=== PATIENT | female | born 1965 | race Caucasian/White ===

== ENCOUNTER 2017-10-08 21:59 | Inpatient (IN) | payer OTHER ==
[2017-10-08] MEDS ORDERED: SODIUM CHLORIDE 0.9% 1,000 ML IV ONE (22:48)
[2017-10-08] MEDS ORDERED: INSULIN REGULAR 100 UNIT/ML VIAL SQ ONE (22:48)
[2017-10-08 22:59] LABS: Glucose,Whole Blood 168 mg/dL (75-99)
[2017-10-08] MEDS ORDERED: MORPHINE SULFATE 4 MG/ML SYRINGE IVP STA (23:22)
--- NOTE | 2017-10-08 23:34 | ED ---
Abdominal Pain HPI - General Chief Complaint: Abdominal Pain Stated Complaint: abd pain Time Seen by Provider: 10/08/17 22:26 Source: patient, EMS Mode of arrival: EMS Limitations: no limitations - History of Present Illness Initial Comments: 52 years old female transferred from [facility] she presented there with a nontraumatic intermittent abdominal pain since 2016 she reports her pain is there daily since some days worse than the other pain has been increasing in intensity and frequency over the past week and earache interfering with her daily activities she reports taking stool softener and straining to have a daily bowel movement stools are soft and brown reports that she has a hard time passing flatus she reports her appetite is low or he has decreased for the last 3 days she is also stating that she has lost 10 pounds then she regained the she is reporting worsening of the nausea requiring Zofran frequently and been more tired for the last several weeks and she has a daily diaphoresis for about a month now complaining about chest heaviness feels like she is not getting enough air she has a history of pulmonary embolism she has been off the anticoagulants since January 2017 and she also has a history of pancreatitis diverticulitis colitis ileus she has previously gone cholecystectomy appendectomy and retrieval of stone from her pancreas she is a diabetic and reports poor recent control of her blood sugar due to changes change her insulin she had quite extensive workup done [facility] CBC was normal test was negative) urinalysis shows glucose no ketones lactic acid was 1.8, compressive metabolic panel showed hyperglycemia which on arrival here had resolved her sugar in all department at [facility] was around 160 lipase was normal troponin was negative BNP was normal she had outpatient ultrasound today abdominal ultrasound was unable to visualize pancreas secondary to overlying bowel gas pelvic ultrasound showed a 2.3 cm centimeter fibroids in the lower posterior uterine segment also had a CT of the abdomen the chest and pelvis there was no PE she is status post cholecystectomy bilateral ductal dilatation and Vanesa's duodenal wall near comment bile duct insertion - Related Data Home Medications Medication Instructions Recorded Confirmed Docusate [Colace] 100 mg PO DAILY 10/08/17 10/08/17 Gabapentin 800 mg PO TID 10/08/17 10/08/17 Insulin Glargine,Hum.rec.anlog 20 unit SQ HS 10/08/17 10/08/17 [Lantus Solostar] Insulin Regular [HumuLIN R] See Protocol SQ TID PRN 10/08/17 10/08/17 Morphine Sulfate 15 mg PO Q4H PRN 10/08/17 10/08/17 Ondansetron HCl [Zofran] 4 mg PO Q4H PRN 10/08/17 10/08/17 PARoxetine HCL [Paxil] 40 mg PO DAILY 10/08/17 10/08/17 Women's Laxative 1 tab PO DAILY 10/08/17 10/08/17 Allergies Allergy/AdvReac Type Severity Reaction Status Date / Time latex Allergy Unknown Verified 10/08/17 22:22 Review of Systems ROS Statement: Those systems with pertinent positive or pertinent negative responses have been documented in the HPI. ROS Other: All systems not noted in ROS Statement are negative. Past Medical History Past Medical History: Diabetes Mellitus, Pulmonary Embolus (PE) Additional Past Medical History / Comment(s): colitis, pollus, ibs, dm 2, pancreatitis, neuropathy, pulmonary embolus 2017 History of Any Multi-Drug Resistant Organisms: None Reported Past Surgical History: Appendectomy, Cholecystectomy, Orthopedic Surgery Additional Past Surgical History / Comment(s): tumor right shoulder non- malignant, L ankle surgery, nose surgery Past Psychological History: No Psychological Hx Reported Smoking Status: Current every day smoker Past Alcohol Use History: None Reported Past Drug Use History: None Reported General Exam - General Exam Comments Initial Comments: General: The patient is awake and alert, in no distress, and does not appear acutely ill. She does look sleepy but GCS is 15 and answers questions appropriately Skin: Skin is warm and dry and no rashes or lesions are noted. Eye: Pupils are equal, round and reactive to light, extra-ocular movements are intact; there is normal conjunctiva bilaterally. Ears, nose, mouth and throat: There are moist mucous membranes and no oral lesions. Neck: The neck is supple, there is no tenderness Cardiovascular: There is a regular rate and rhythm. No murmur, rub or gallop is appreciated. Respiratory: To auscultation bilateral, no wheezing no rhonchi no distress respiratory [place] noticed Gastrointestinal: She is mildly diffusely tender over the right upper quadrant area and the left upper quadrant area and the epigastric area positive bowel sounds no guarding no rebounds or Back: There is no tenderness to palpation in the midline. There is no obvious deformity. Musculoskeletal: Normal ROM, no tenderness, There is no pedal edema. There is no calf tenderness or swelling. No cords were appreciated. Neurological: CN II-XII intact, Cranial nerves III through XII are intact. There are no obvious motor or sensory deficits. Coordination appears grossly intact. Speech is normal. Psychiatric: Cooperative, appropriate mood & affect, normal judgment. Limitations: no limitations Course Vital Signs 10/08/17 22:01 Temperature 98.4 F Pulse Rate 76 Respiratory 18 Rate Blood Pressure 128/86 O2 Sat by Pulse 97 Oximetry Medical Decision Making - Lab Data Lab Results 10/08/17 Range/Units 22:54 POC Glucose (mg/dL) 168 H (75-99) mg/dL POC Glu Manager Long [facility] ID Tiki Alcantara Disposition Clinical Impression: Diffuse abdominal pain, Chronic abdominal pain, Duodenitis Disposition: ADMITTED IP TO THIS HOSP Condition: Good Referrals: Yung Otto MD [Primary Care Provider] - 1-2 days
[2017-10-08] MEDS ORDERED: NALOXONE 0.4 MG/ML 1 ML VIAL IV PRN (23:35)
[2017-10-08] MEDS ORDERED: GABAPENTIN 400 MG CAP PO STA (23:36)
[2017-10-08] MEDS: SODIUM CHLORIDE 0.9% 1,000 ML IV SCH (23:37)
[2017-10-08] MEDS ORDERED: INSULIN REGULAR 100 UNIT/ML VIAL SQ PRN (23:43)
[2017-10-08] MEDS ORDERED: ONDANSETRON 4 MG TAB PO PRN (23:43)
[2017-10-09] MEDS: ONDANSETRON 4 MG/2 ML VIAL IVP PRN ×3 (06:32→22:59)
[2017-10-09 07:06] LABS: Basophils % (A) 1 %; Eosinophils # (A) 0.2 k/uL (0-0.7); Eosinophils % (A) 3 %; HCT 38.1 % (34.0-46.0); HGB 11.6 gm/dL (11.4-16.0); Hypochromasia Marked; Lymphocytes # (A) 2.6 k/uL (1.0-4.8); Lymphocytes % (A) 42 %; MCH 26.3 pg (25.0-35.0); MCHC 30.3 g/dL (31.0-37.0); MCV 86.5 fL (80.0-100.0); Mean Platelet Volume 7.1; Monocytes # (A) 0.3 k/uL (0-1.0); Monocytes % (A) 6 %; Neutrophils # (A) 2.8 k/uL (1.3-7.7); Neutrophils % (A) 46 %; Platelet Count 194 k/uL (150-450); RBC 4.41 m/uL (3.80-5.40); RDW 12.3 % (11.5-15.5); WBC 6.1 k/uL (3.8-10.6)
[2017-10-09 07:11] LABS: ALT 27 U/L (9-52); AST 22 U/L (14-36); Alkaline Phosphatase 85 U/L (38-126); Anion Gap 8 mmol/L; Blood Urea Nitrogen 6 mg/dL (7-17); Calcium 8.8 mg/dL (8.4-10.2); Carbon Dioxide 23 mmol/L (22-30); Chloride 110 mmol/L (98-107); Glucose 150 mg/dL (74-99); Potassium 4.4 mmol/L (3.5-5.1); Sodium 141 mmol/L (137-145); Total Bilirubin 0.3 mg/dL (0.2-1.3); Total Protein 5.8 g/dL (6.3-8.2)
[2017-10-09 07:33] LABS: Glucose,Whole Blood 158 mg/dL (75-99)
[2017-10-09] MEDS: GABAPENTIN 400 MG CAP PO SCH ×3 (08:07→21:43)
[2017-10-09] MEDS: PARoxetine 20 MG TAB PO SCH (08:07)
[2017-10-09] MEDS: PANTOPRAZOLE 40 MG/10 ML VIAL IV SCH (08:07)
[2017-10-09] MEDS: DOCUSATE 100 MG CAP PO SCH (08:07)
[2017-10-09] MEDS: MORPHINE SULFATE 4 MG/ML SYRINGE IV PRN ×4 (08:41→21:41)
[2017-10-09] MEDS: SODIUM CHLORIDE 0.9% 1,000 ML IV SCH ×2 (09:38→19:32)
[2017-10-09] MEDS: NICOTINE 14MG/24HR PATCH TRANSDERM SCH (11:31)
[2017-10-09 12:00] LABS: Glucose,Whole Blood 252 mg/dL (75-99)
--- NOTE | 2017-10-09 12:32 | P.CONS ---
History of Present Illness - Reason for Consult Consult date: 10/09/17 abdominal pain possible duodenitis Requesting physician: Jt Cruz - Chief Complaint abdominal pain - History of Present Illness 52-year-old female with a history of remote EtOH chronic pancreatitis, acalculous cholecystectomy, diverticulosis, unprovoked pulmonary embolism presently not on anticoagulation, chronic abdominal pain, colitis, neuropathy, and appendectomy. Patient has been experiencing diffuse abdominal pain since [facility] but sought medical care for the first time this past week and [facility]. However [facility] records indicate CT of the abdomen and pelvis that showed no evidence of bowel obstruction. Multiple pancreatic calcifications consistent with chronic pancreatitis in the medial margin of the adjacent duodenum there is a 2.61.7 cm possible cystic lesion. There is mild ectasia of the biliary tree with pneumobilia that could be seen in postcholecystectomy patients. Patient reports about a year ago she went to [place] she grew up in the [facility] and saw gastrologist for a "pancreatic stone removed". She recently saw a GI doctor in [place], [place] regarding her presenting GI complaints. Last colonoscopy to her memory at least 5 years ago. No EGD. Denies diarrhea constipation hematemesis hematochezia melena weight loss fever or chills. [facility] chemistries reviewed no evidence of abnormal liver or pancreatic enzymes. White count 6.1. Hemoglobin 11.6. BUN 6 creatinine 0.5. Review of Systems Constitutional: Denies fever, chills, sweats, weight gain, or loss. HEENT: Negative for migraines, blurred vision or loss, earaches, drainage, tinnitus, oral mucosal lesions, dysphagia, or odynophagia. CARDIAC: Negative for chest pain, arrhythmias, or palpitation. RESPIRATORY: Pulmonary embolus and. Negative for shortness of breath, hemoptysis, cough, or sputum production. GI: See HPI for pertinent findings. : Negative for hematuria, urgency, frequency, polyuria, or dysuria. GYNc: Denies possibility of . Negative vaginal discharge. MUSCULOSKELETAL: Negative for muscle aches, swelling, arthritis, and arthralgias. NEUROLOGIC: Negative for stroke or TIA. ENDOCRINE: Negative for thyroid problems. SKIN: Negative for rash or itching. PSYCHIATRIC: Negative history for depression and anxiety Past Medical History Past Medical History: Diabetes Mellitus, Pulmonary Embolus (PE) Additional Past Medical History / Comment(s): colitis, polps, ibs, dm 2, pancreatitis, neuropathy, pulmonary embolus 2017 History of Any Multi-Drug Resistant Organisms: None Reported Past Surgical History: Appendectomy, Cholecystectomy, Orthopedic Surgery Additional Past Surgical History / Comment(s): tumor right shoulder non- malignant, L ankle surgery, nose surgery Past Anesthesia/Blood Transfusion Reactions: No Reported Reaction Past Psychological History: No Psychological Hx Reported Smoking Status: Former smoker Past Alcohol Use History: None Reported Additional Past Alcohol Use History / Comment(s): Patient smokes about 1.5 packs a day Past Drug Use History: Marijuana Additional Drug Use History / Comment(s): Patient smokes marijuana for nausea and pain. - Past Family History Mother Family Medical History: Cancer, Congestive Heart Failure (CHF) Additional Family Medical History / Comment(s): Heart disease Father Family Medical History: No Reported History Medications and Allergies Home Medications Medication Instructions Recorded Confirmed Type Docusate [Colace] 100 mg PO DAILY 10/08/17 10/08/17 History Gabapentin 800 mg PO TID 10/08/17 10/08/17 History Insulin Glargine,Hum.rec.anlog 20 unit SQ HS 10/08/17 10/08/17 History [Lantus Solostar] Insulin Regular [HumuLIN R] See Protocol SQ TID PRN 10/08/17 10/08/17 History Morphine Sulfate 15 mg PO Q4H PRN 10/08/17 10/08/17 History Ondansetron HCl [Zofran] 4 mg PO Q4H PRN 10/08/17 10/08/17 History PARoxetine HCL [Paxil] 40 mg PO DAILY 10/08/17 10/08/17 History Women's Laxative 1 tab PO DAILY 10/08/17 10/08/17 History Allergies Allergy/AdvReac Type Severity Reaction Status Date / Time latex Allergy Unknown Verified 10/09/17 07:13 Physical Exam Vitals: Vital Signs Temp Pulse Pulse Pulse Resp BP BP 10/09/17 08:04 98.3 F 72 16 10/09/17 08:00 16 10/09/17 00:40 98.5 F 76 16 108/71 10/09/17 00:19 98.7 F 89 18 114/66 10/08/17 22:01 98.4 F 76 18 128/86 BP Pulse Ox 10/09/17 08:04 117/80 97 10/09/17 08:00 10/09/17 00:40 93 L 10/09/17 00:19 100 10/08/17 22:01 97 Intake and Output 10/08/17 10/09/17 10/09/17 22:59 06:59 14:59 Intake Total 500 100 Balance 500 100 Intake: Oral 500 100 Other: Voiding Method Toilet Weight 73.936 kg General appearance: The patient is alert, oriented, in no acute distress. HET: Head is normocephalic and atraumatic. Pupils are equal and reactive. Oropharynx is clear without lesions. Neck: Supple without lymphadenopathy. Trachea midline. Heart: S1 S2. Regular rate and rhythm. Lungs: No crackles or wheezes are heard. Abdomen: Soft, mild tenderness across the mid to lower abdomen, nondistended with bowel sounds. No peritoneal signs. No palpable organomegaly or masses. Extremities: Normal skin color and turgor. No cyanosis, rash, ulceration, clubbing, or edema. Radial and pedal pulses are 2/4 bilaterally. Neurological: No focal deficits. Strength and sensation are grossly intact. Results CBC & Chem 7: 10/09/17 06:37 10/09/17 06:37 Labs: Abnormal Lab Results - Last 24 Hours (Table) 10/08/17 10/09/17 10/09/17 Range/Units 22:54 06:37 06:37 MCHC 30.3 L (31.0-37.0) g/dL Chloride 110 H (98-107) mmol/L BUN 6 L (7-17) mg/dL Glucose 150 H (74-99) mg/dL POC Glucose (mg/dL) 168 H (75-99) mg/dL Total Protein 5.8 L (6.3-8.2) g/dL Albumin 3.0 L (3.5-5.0) g/dL 10/09/17 Range/Units 07:17 MCHC (31.0-37.0) g/dL Chloride (98-107) mmol/L BUN (7-17) mg/dL Glucose (74-99) mg/dL POC Glucose (mg/dL) 158 H (75-99) mg/dL Total Protein (6.3-8.2) g/dL Albumin (3.5-5.0) g/dL CT scan - abdomen: report reviewed ([facility] report reviewed) Assessment and Plan (1) Chronic abdominal pain Narrative/Plan: 52-year-old female with a acute on chronic abdominal pain since Thanksgiving without hematemesis hematochezia melena fever chills or weight loss. Underlying history of EtOH abuse and chronic pancreatitis colitis. Outside CT imaging reported medial margin of adjacent duodenal lesion possibly cystic 2.6 x 1.7 cm with mild ectasia of the biliary tree and pneumobilia with normal liver pancreatic enzymes. Current Visit: Yes Status: Acute Code(s): R10.9 - UNSPECIFIED ABDOMINAL PAIN ; G89.29 - OTHER CHRONIC PAIN SNOMED Code(s): 685483660 Plan: 1. We'll proceed with EGD colonoscopy tomorrow. 2. Further recognitions forthcoming after endoscopic exams are completed. Patient may benefit from outpatient MRCP. We'll follow closely with you. 3. Continue with GI prophylaxis Protonix 40 mg IV daily. Thank you for this kind referral and the opportunity to participate in the care of your patient. This consultation was discussed with Dr. Bonilla. The impression and plan of care have been directed as dictated.
[2017-10-09] MEDS: INSULIN ASPART 100 UNIT/ML 1 ML 10 ML VIAL SQ SCH ×3 (13:10→21:37)
[2017-10-09 13:16] LABS: Amphetamine Screen,Urine Not Detected (NotDetected); Barbiturate Screen,Urine Not Detected (NotDetected); Benzodiazepines Screen,Urine Not Detected (NotDetected); Cocaine Screen,Urine Not Detected (NotDetected); Methadone Screen, Urine Not Detected (NotDetected); Opiate Screen,Urine Detected (NotDetected); Oxycodone Screen, Urine Not Detected (NotDetected); Phencyclidine Screen,Urine Not Detected (NotDetected); Tricyclic Antidepressant,Urine Not Detected (NotDetected); Urn Cannabinoid Scrn Not Detected (NotDetected)
[2017-10-09] MEDS ORDERED: PEG 3350-NA SULF,BICARB,CL/KCL 4,000 ML BOTTLE PO ONE (16:00)
[2017-10-09 16:39] LABS: Appearance,Urine Clear (Clear); Bilirubin,Urine Negative (Negative); Blood,Urine Negative (Negative); Color,Urine Light Yellow; Glucose,Urine (UA) 2+ (Negative); Ketones,Urine Negative (Negative); Leukocyte Esterase,Urine Negative (Negative); Nitrite,Urine Negative (Negative); PH, Urine 5.5 (5.0-8.0); Protein,Urine Negative (Negative); Specific Gravity,Urine 1.007 (1.001-1.035); Urobilinogen,Urine <2.0 mg/dL (<2.0)
[2017-10-09 16:40] LABS: Glucose,Whole Blood 112 mg/dL (75-99)
--- NOTE | 2017-10-09 16:48 | HP ---
HISTORY AND PHYSICAL DATE OF SERVICE: 10/09/2016. CHIEF COMPLAINTS: Abdominal pain and foot lesions. HISTORY OF PRESENT ILLNESS: This 52-year-old woman with a past medical history of diabetes mellitus, in multiple members, history of colitis, history of polyps, history of pancreatitis, history of DJD being followed by primary physician near [place], was complaining of abdominal pain since [place]. The patient complains of pain diffusely without any relation to feeding. The patient did have daily bowel movements. Patient apparently lost 10 pounds. Patient also had nausea also. The patient was in [facility] and subsequently transferred to [facility] and admitted for further evaluation and treatment. CT scan in [place] apparently did not show any acute abnormality. There is no history of fever, rigors. No history of headache, loss of consciousness, seizures at this time. Fibroids were noted previously. The patient had a cholecystectomy. PAST MEDICAL HISTORY: Diabetes, pulmonary embolism, colitis, polyps, appendectomy, cholecystectomy. MEDICATIONS: Prior to admission include home medications: 1. Women's laxative 1 p.o. daily. 2. Colace 100 mg. 3. Paxil 40 mg daily. 4. Zofran 4 mg q.4h p.r.n. 6. Lantus 20 units subcu q.h.s. 7. Morphine 50 mg q.4h p.r.n. 8. Gabapentin 800 mg p.o. t.i.d. ALLERGIES: Latex. FAMILY HISTORY: Of cancer, CHF, heart disease in the family. SOCIAL HISTORY: History of THC, history of smoking. REVIEW OF SYSTEMS: ENT: No diminished vision. No diminished hearing. CARDIOVASCULAR: No angina. No palpitations. Respiratory: No cough or hemoptysis. GI as mentioned earlier. no dysuria. Nervous system: No numbness, weakness. Allergy/Immunology: No asthma or hayfever. Musculoskeletal as mentioned earlier. Hematology/Oncology: No history of anemia. Endocrine: History of diabetes. No hypothyroidism. Constitutional: As mentioned earlier. Dermatology negative. Rheumatology: Psychiatry: Mentioned earlier. PHYSICAL EXAMINATION: Alert and oriented x3. Pulse is 76, blood pressure 108/77, respiration 16, temperature 98.4, pulse ox 98% on room air. HEENT: Conjunctivae normal. Neck: No jugular venous distention. No carotid bruit. Cardiovascular: S1, S2. Respirations:Breath sounds diminished in the bases. A few scattered rhonchi and crackles. ABDOMEN: Soft, nontender. No mass palpable. Legs no edema. No swelling. Bilateral lesions also on the feet, which is varicose in character and also has some lesions on the toe area also present. NERVOUS SYSTEM: Higher functions as mentioned earlier. Moves all four limbs. No focal deficits. Lymphatics: No lymph nodes palpable in the neck, axillae or groin. Skin no ulcer, rashes or bruising. LABS: WBC CBC within normal limits. Sodium 140, potassium 4.4. ASSESSMENT: 1. Abdominal pain. Possibly acute gastroenteritis, acute gastritis, irritable bowel syndrome. 2. Bilateral plantar lesions. 3. Plantar keratoses hemorrhagica. 4. History of duodenitis. 5. Diabetes type 2. 6. History of pulmonary embolism. 7. History of colitis. 8. History of pancreatitis. 9. History of peripheral neuropathy. 10.History of appendectomy. 11.History of degenerative joint disease. 12.Remote history of nicotine dependence. 13.History of right shoulder nonmalignant tumor. RECOMMENDATIONS AND DISCUSSION: In this 52 year old woman who presented with multiple complex medical issues, we will monitor the patient closely, continue the current medications, management and symptomatic treatment and pain medications. I would also recommend infectious disease evaluation and possible skin biopsy. Gastroenterology evaluation. The patient did have endoscopies recently. Continue smoke cessation has been advised. Prognosis guarded because of multiple complex medical issues. Further recommendations to follow. MMODL / IJN: [id number] / TIANA
--- NOTE | 2017-10-09 17:09 | XR ---
EXAMINATION TYPE: XR foot complete RT DATE OF EXAM: 10/09/2017 COMPARISON: NONE HISTORY: Right big toe ulcer plantar aspect nonhealing TECHNIQUE: Three-view right foot FINDINGS: No acute fractures are evident. No suspicious cortical erosion is evident. There is some so ft tissue change under the great toe. There is some subluxation of the proximal phalanx on the fifth metatarsal. Hammertoe may be present fifth digit. IMPRESSION: 1. No radiographic findings to suggest underlying osteomyelitis. Soft tissue changes are present und er the great toe.
[2017-10-09] MEDS: AMPICILLIN-SULBACTAM 1.5 GM in SODIUM CHLORIDE 0.9% 50 ML IVPB SCH ×2 (17:32→23:49)
[2017-10-09] MEDS: HYDROcodone/APAP 5-325MG 1 EACH TAB PO PRN (19:31)
[2017-10-09] MEDS ORDERED: INSULIN GLARGINE HUM REC ANLOG 20 UNIT SQ SCH (21:00)
[2017-10-09 21:16] LABS: Glucose,Whole Blood 91 mg/dL (75-99)
[2017-10-09] MEDS: INSULIN DETEMIR 100 UNIT/ML 10 ML VIAL SQ SCH (21:42)
[2017-10-09] MEDS: HEPARIN SODIUM,PORCINE 5,000 UNIT/ML 1 ML VIAL SQ SCH (21:44)
[2017-10-09] MEDS: diphenhydrAMINE 25 MG CAP PO PRN (22:39)
[2017-10-10 01:27] LABS: HIV AB P24 Non-Reactive (Non-Reactive); HIV P24 AG Non-Reactive (Non-Reactive)
[2017-10-10] MEDS: MORPHINE SULFATE IR 15 MG TABLET PO PRN ×4 (01:41→22:09)
[2017-10-10] MEDS ORDERED: ALPRAZolam 0.25 MG TAB ONE (02:57)
[2017-10-10 03:20] LABS: Glucose,Whole Blood 73 mg/dL (75-99)
[2017-10-10] MEDS ORDERED: DEXTROSE 50%-WATER 50 ML SYRINGE IVP STA ×2 (03:28→09:07)
[2017-10-10] MEDS: DEXTROSE 5%-0.45% NACL 1,000 ML IV SCH ×2 (03:53→17:04)
[2017-10-10 04:35] LABS: Glucose,Whole Blood 123 mg/dL (75-99)
[2017-10-10] MEDS: AMPICILLIN-SULBACTAM 1.5 GM in SODIUM CHLORIDE 0.9% 50 ML IVPB SCH ×3 (05:49→18:00)
[2017-10-10] MEDS: MORPHINE SULFATE 4 MG/ML SYRINGE IV PRN ×2 (05:55→10:29)
[2017-10-10] MEDS: ONDANSETRON 4 MG/2 ML VIAL IVP PRN ×2 (06:09→16:58)
--- NOTE | 2017-10-10 06:21 | CONS ---
CONSULTATION DATE OF SERVICE: 10/09/2017. REASON FOR CONSULTATION: 1. Right big toe plantar ulcer. 2. Left big toe wound. HISTORY OF PRESENT ILLNESS: The patient is a 52-year-old female with a past medical history significant for diabetes mellitus. Apparently the patient presented to the [facility] with abdominal pain apparently has been going on since Thanksgiving, mostly intermittent abdominal pain, nausea with no vomiting and no diarrhea. The patient did have a CT abdominal and pelvis at that facility did show evidence of a chronic pancreatitis and the cystic lesion. The patient was subsequently sent to the [facility] for further workup of the same. The patient also being seen by Gastroenterology and EGD, colonoscopy has been scheduled for tomorrow. The patient also has a wound on the plantar aspect of the right foot for many months now. The patient did say she did have a hard callus at the site which was getting discolored and she took it out herself leading to formation of this wound. She has for a couple of weeks two months now. The patient has been complaining of some pain recently for the last 3 weeks or so, more of a dull aching pain especially when she walks on it with intensity about 2 to 3 out of 10. She did mention some serous drainage from it. Some surrounding redness, but no foul smelling drainage. No fever. No chills. I was asked to see the patient for further recommendations regarding her diabetic foot wound and if need for any antibiotic or question of osteomyelitis. REVIEW OF SYSTEMS: Constitutional: Positive for weakness. No fever. No chills. Eyes: No complaint. ENT no complaint. Respiratory no complaint. Genitourinary: No complaint. Gastrointestinal: As per HPI. MUSCULOSKELETAL: As per HPI. Integumentary as per HPI. PSYCHOLOGICAL: No complaint. Endocrine no complaint. Neurologic no complaint. PAST MEDICAL HISTORY: Significant for pulmonary embolism, pancreatitis, neuropathy, diabetes mellitus, colitis, left ankle fracture. PAST SURGICAL HISTORY: Appendectomy, cholecystectomy, left ankle fracture repair, right shoulder surgery. SOCIAL HISTORY: Used to smoke about 1/2 pack per day, quit recently. Did have history of marijuana use. FAMILY HISTORY: Mother with history of heart disease, congestive heart failure. ALLERGIES: Allergies to LATEX. MEDICATIONS: Include the patient is currently on [place], Xanax, Benadryl, Colace, Neurontin. Heparin, NovoLog, Levemir, Narcan, nicotine patch, Zofran, Protonix, Paxil, Restoril. EXAMINATION: Her blood pressure is 144/88 with a pulse of 77, temperature 97.3. She is 96% on room air. General description is a middle-aged female up in the bed, up in no distress. No tachypnea or accessory muscles of respiration use. HEENT: Shows no pallor or scleral icterus. Oral mucosal membranes are moist. No erythema or thrush. Neck trachea central. No thyromegaly. Lungs unlabored breathing. Clear to auscultation anteriorly. No wheeze or crackles. Heart S1, S2. Regular rate and rhythm. Abdomen soft. No tenderness. No guarding or rigidity. Extremities : No edema of the feet. Examination of the right foot on the plantar aspect did have a wound vac and a pressure ulcer stage II with minimal surrounding swelling. No redness was noticed or any drainage. Left big toe did have a superficial wound with no cellulitis. Neurological: Patient is awake, alert, oriented. Mood and affect normal. LABS: Hemoglobin is 11.6, WBC of 6.1 with a BUN of 6, creatinine 0.57. Electrolytes have been normal. Liver enzymes are normal. Urine is negative. Urine drug screen positive for opiates. DIAGNOSTIC IMPRESSION/PLAN: 1. Patient with right diabetic foot ulcer on the plantar aspect of the right foot started as a callus which the patient took out herself. Wound does not look deep and no purulence was noticed with minimal swelling. Wound culture has been obtained to rule out infection and x-rays will be obtained to make sure no evidence of any bony changes. 2. Left big toe tip wound could be more likely traumatic with no evidence of any cellulitis. PLAN: 1. X-rays of the right foot especially concentrating on the right big toe. 2. Aquacel Silver to be applied to the right pinky toe plantar wound to be changed q.48 hours. 3. Aquacel silver dressing to the right big toe wound. 4. We will add Unasyn 1.5 q6 while waiting for the culture to finalize. 5. We will follow up on the clinical condition and culture to further adjust medication if needed. Thank you for this consultation. Will follow this patient along with you. MMODL / IJN: [id number] / [facility] CENTERVashti
[2017-10-10 07:06] LABS: Glucose,Whole Blood 84 mg/dL (75-99)
[2017-10-10] MEDS: INSULIN ASPART 100 UNIT/ML 1 ML 10 ML VIAL SQ SCH ×4 (07:12→20:30)
[2017-10-10 07:27] LABS: Anion Gap 7 mmol/L; Blood Urea Nitrogen 3 mg/dL (7-17); Calcium 9.2 mg/dL (8.4-10.2); Carbon Dioxide 29 mmol/L (22-30); Chloride 110 mmol/L (98-107); Glucose 76 mg/dL (74-99); Sodium 146 mmol/L (137-145)
[2017-10-10 08:31] LABS: Basophils # (A) 0.1 k/uL (0-0.2); Basophils % (A) 1 %; Eosinophils # (A) 0.2 k/uL (0-0.7); Eosinophils % (A) 3 %; HGB 12.3 gm/dL (11.4-16.0); Hypochromasia Moderate; Lymphocytes % (A) 36 %; MCHC 31.6 g/dL (31.0-37.0); MCV 85.5 fL (80.0-100.0); Mean Platelet Volume 6.9; Monocytes # (A) 0.4 k/uL (0-1.0); Monocytes % (A) 7 %; Neutrophils # (A) 2.7 k/uL (1.3-7.7); Neutrophils % (A) 49 %; Platelet Count 210 k/uL (150-450); RBC 4.55 m/uL (3.80-5.40); RDW 12.3 % (11.5-15.5); WBC 5.4 k/uL (3.8-10.6)
[2017-10-10] MEDS: PANTOPRAZOLE 40 MG/10 ML VIAL IV SCH (08:45)
[2017-10-10 08:56] LABS: Glucose,Whole Blood 56 mg/dL (75-99)
[2017-10-10 10:19] LABS: Glucose,Whole Blood 123 mg/dL (75-99)
[2017-10-10] MEDS: NICOTINE 14MG/24HR PATCH TRANSDERM SCH (10:50)
[2017-10-10] MEDS: HEPARIN SODIUM,PORCINE 5,000 UNIT/ML 1 ML VIAL SQ SCH ×2 (10:50→20:10)
[2017-10-10] MEDS: GABAPENTIN 400 MG CAP PO SCH ×3 (10:50→21:27)
[2017-10-10 11:44] LABS: Glucose,Whole Blood 117 mg/dL (75-99)
[2017-10-10] MEDS ORDERED: PROPOFOL 10 MG/ML 20 ML VIAL IV ONE (11:47)
[2017-10-10] MEDS ORDERED: LIDOCAINE 1% INJ 10MG/ML (20 ML MDV) ONE (11:47)
[2017-10-10] MEDS ORDERED: fentaNYL (PF) 50 MCG/ML 2 ML AMP ONE (11:47)
[2017-10-10] MEDS ORDERED: MIDAZOLAM 2 MG/2 ML VIAL ONE (11:47)
[2017-10-10] MEDS ORDERED: DEXTROSE 5%-0.45% NACL 1,000 ML IV ONE (11:56)
--- NOTE | 2017-10-10 12:22 | P.PCN ---
Date of Procedure: 10/10/17 Procedure(s) Performed: Brief history: Patient is a pleasant 52-year-old white female,scheduled for an elective upper endoscopy as well as colonoscopy as a part of evaluation ofabdominal pain for the last 3 months duration. She also has intermittent nausea but no emesis. Has altered bowel movements with diarrhea and constipation but no bleeding. Procedure performed: Esophagogastroduodenoscopywith biopsy Colonoscopy with snare polypectomy Preoperative diagnosis: Diffuse abdominal pain or change in bowel habits Anesthesia: MAC Procedure: After informed consent was obtained from the patient was brought into the endoscopy unit and IV sedation was administered by anesthesia under continuous monitoring. Initially upper endoscopy was done. The Olympus GF 160 video endoscope was inserted inserted into the mouth and esophagus intubated without any difficulty and was gradually advanced into the stomach and duodenum and carefully examined. The bulb and second part of the duodenum appeared normal. The scope was then withdrawn into the stomach adequately insufflated with air and upon careful examination the antrum had mild gastritis and biopsies were done from this area. The body, cardia and fundus appeared normal. The scope was then withdrawn into the esophagus. The GE junction was located at 40 cm to the incisors. It appeared regular with no erythema erosions or ulcerations. Rest of the esophagus appeared normal. Patient tolerated the procedure well. At this time the patient continued to remain sedation. Initial digital rectal examination was normal. Olympus CF 160 video colonoscope was then inserted into the rectum and gradually advanced to the cecum without any difficulty. Careful examination was performed as the scope was gradually being withdrawn. The prep was excellent. The cecum, ascending colonappeared normal. In the transverse colon there was a 7 mm polyp that was removed by snare polypectomy. The descending colon there was a 5 mm polyp that was removed by snare polypectomy. Rest of the, transverse colon, descending colon, sigmoid colon and rectum appeared normal. Retroflexion was performed in the rectum and no lesions were noted. Patient tolerated the procedure well. Impression: 1. Upper endoscopy revealed mild antral gastritis and a small hiatal hernia 2. Colonoscopy revealed 5 mm and 7 mm desscending colon and transverse colon polyp respectively status post polypectomy Recommendations: Findings of this examination were discussed with the patient. She was advised to follow with the biopsy results.she will be on a regular diet. She can have a repeat colonoscopy in 5 years
[2017-10-10] MEDS: HYDROcodone/APAP 5-325MG 1 EACH TAB PO PRN (13:02)
[2017-10-10] MEDS: PARoxetine 20 MG TAB PO SCH (13:03)
[2017-10-10] MEDS: DOCUSATE 100 MG CAP PO SCH (13:03)
[2017-10-10 14:23] VITALS: BMI 25.5
--- NOTE | 2017-10-10 14:49 | PN ---
PROGRESS NOTE DATE OF SERVICE: 10/10/2017. REASON FOR FOLLOWUP: Right diabetic foot ulcer. INTERVAL HISTORY: The patient is afebrile. She is breathing comfortably. Denies any chest pain or cough. No further nausea, vomiting, or any diarrhea. Denies any pain in the right big toe area. PHYSICAL EXAMINATION: Blood pressure 124/77 with a pulse of 55. Temperature of 97.9. She is 98% on room air. General description is a middle-aged female lying in bed in no distress. RESPIRATORY SYSTEM: Unlabored breathing. Clear to auscultation anteriorly. HEART S1, S2. Regular rate and rhythm. ABDOMEN: Soft, no tenderness. Right foot plantar wound on the big toe currently dressed, but no drainage. LABS: White count 5.4, sed rate normal at 13. X-rays were negative for any bony changes. Culture so far negative. DIAGNOSTIC IMPRESSION AND PLAN: Patient with right diabetic foot ulcer with question of cellulitis. Culture currently pending. We will keep the patient on Unasyn. X-ray were negative for any bony changes. Clinically doubt osteo as sed rate was normal as well. Local wound care to continue with Aquacel Silver with close outpatient followup. MMODL / IJN: [id number] /
[2017-10-10 17:03] LABS: Glucose,Whole Blood 215 mg/dL (75-99)
--- NOTE | 2017-10-10 17:19 | PN ---
PROGRESS NOTE DATE OF SERVICE: 10/10/2017 This 52-year-old woman who was admitted with abdominal pain also had bilateral leg lesions. Also patient underwent EGD, colonoscopy. EGD showed antral gastritis and colonoscopy showed 2 polyps. No fever. No shortness of breath. PHYSICAL EXAM: Alert and oriented x3. Pulse is 68, blood pressure 130/98, respirations 16, temperature 98 degrees, pulse ox 99% on room air. HEENT: Conjunctivae normal. Oral mucosa moist. NECK: No jugular venous distention. CARDIOVASCULAR: S1, S2. RESPIRATORY: Breath sounds diminished in the bases. No rhonchi. No crackles. ABDOMEN: Soft. Mild diffuse discomfort. LEGS: Bilateral leg cellulitis. NERVOUS SYSTEM: No focal deficits. LABS: Accu-Cheks 123, 170. ASSESSMENT: 1. Abdominal pain. Possible acute gastroenteritis and acute gastritis, status post EGD showing antral gastritis. 2. Status post colonoscopy showing colonic polyps. 3. Possible irritable bowel syndrome. 4. Bilateral plantar lesions cellulitis. 5. History of duodenitis. 6. Diabetes type 2. 7. History of pulmonary embolism. 8. Colitis. 9. History of pancreatitis. 10.History of peripheral neuropathy. 11.History of appendectomy. 12.History of degenerative joint disease. 13.History of nicotine dependence. 14.History of right shoulder nonmalignant tumor. RECOMMENDATIONS AND DISCUSSION: I recommend to continue current management, monitor, and symptomatic treatment. Otherwise at this time, we will continue to monitor, local treatment, antibiotics. Closely follow with Infectious Disease. Guarded prognosis. Further recommendations to follow. MMODL / IJN: [id number] /
[2017-10-10] MEDS: ALPRAZolam 0.25 MG TAB PO PRN (18:53)
[2017-10-10] MEDS: INSULIN DETEMIR 100 UNIT/ML 10 ML VIAL SQ SCH (20:38)
[2017-10-10 20:51] LABS: Glucose,Whole Blood 159 mg/dL (75-99)
[2017-10-11] MEDS: HYDROcodone/APAP 5-325MG 1 EACH TAB PO PRN ×2 (00:10→15:59)
[2017-10-11] MEDS: ONDANSETRON 4 MG/2 ML VIAL IVP PRN ×2 (00:11→12:57)
[2017-10-11] MEDS: AMPICILLIN-SULBACTAM 1.5 GM in SODIUM CHLORIDE 0.9% 50 ML IVPB SCH ×4 (00:11→18:43)
[2017-10-11] MEDS: MORPHINE SULFATE IR 15 MG TABLET PO PRN ×5 (03:23→22:42)
[2017-10-11 07:01] LABS: Glucose,Whole Blood 88 mg/dL (75-99)
[2017-10-11] MEDS: INSULIN ASPART 100 UNIT/ML 1 ML 10 ML VIAL SQ SCH ×4 (07:32→20:51)
[2017-10-11 07:38] LABS: Basophils % (A) 1 %; Eosinophils # (A) 0.2 k/uL (0-0.7); Eosinophils % (A) 4 %; HCT 40.4 % (34.0-46.0); HGB 12.2 gm/dL (11.4-16.0); Hypochromasia Slight; Lymphocytes # (A) 2.3 k/uL (1.0-4.8); Lymphocytes % (A) 38 %; MCHC 30.3 g/dL (31.0-37.0); MCV 85.8 fL (80.0-100.0); Monocytes # (A) 0.3 k/uL (0-1.0); Monocytes % (A) 5 %; Neutrophils # (A) 3.1 k/uL (1.3-7.7); Neutrophils % (A) 51 %; Platelet Count 220 k/uL (150-450); RDW 12.7 % (11.5-15.5); WBC 6.2 k/uL (3.8-10.6)
[2017-10-11 07:44] LABS: Anion Gap 8 mmol/L; Blood Urea Nitrogen 5 mg/dL (7-17); Calcium 9.6 mg/dL (8.4-10.2); Carbon Dioxide 31 mmol/L (22-30); Chloride 107 mmol/L (98-107); Glucose 85 mg/dL (74-99); Potassium 4.6 mmol/L (3.5-5.1); Sodium 146 mmol/L (137-145)
[2017-10-11] MEDS ORDERED: MAGNESIUM HYDROXIDE 2,400 MG/10 ML CUP PO PRN (08:13)
[2017-10-11] MEDS: GABAPENTIN 400 MG CAP PO SCH ×3 (08:38→20:46)
[2017-10-11] MEDS: PARoxetine 20 MG TAB PO SCH (08:39)
[2017-10-11] MEDS: PANTOPRAZOLE 40 MG TABLET PO SCH (08:39)
[2017-10-11] MEDS: DOCUSATE 100 MG CAP PO SCH (08:39)
[2017-10-11] MEDS: NICOTINE 14MG/24HR PATCH TRANSDERM SCH (08:39)
[2017-10-11] MEDS: HEPARIN SODIUM,PORCINE 5,000 UNIT/ML 1 ML VIAL SQ SCH ×2 (08:49→20:47)
[2017-10-11 11:48] LABS: Glucose,Whole Blood 221 mg/dL (75-99)
[2017-10-11] MEDS: diphenhydrAMINE 25 MG CAP PO PRN ×2 (13:56→20:46)
--- NOTE | 2017-10-11 16:35 | PN ---
PROGRESS NOTE DATE OF SERVICE: 10/11/2017 This 52-year-old woman was admitted with abdominal pain, had possible gastritis and gastroenteritis. Patient also complaining of lesions around the anus. Colonic polyps are determined. Patient also had bilateral leg lesions and possible tumor is expected. No chest pain. No palpitations. No fever. PHYSICAL EXAM: Alert and oriented x3. Pulse 82, blood pressure 139/70, respiration 16, temperature 97.4, pulse ox 96% on room air. HEENT: Conjunctivae normal. NECK: No jugular venous distension. CARDIOVASCULAR SYSTEM: S1, S2, muffled, RESPIRATORY: Breath sounds diminished at the bases, no rhonchi, no crackles. Abdomen is soft, nontender. No mass palpable. LEGS: No edema, no swelling. LABS: CBC within normal limits. Glucose is 210. ASSESSMENT: 1. Abdominal pain, possible acute gastritis or gastroenteritis, status post EGD showing gastritis. 2. Status post colonoscopy showing colonic polyps. 3. Possible irritable bowel syndrome. 4. Bilateral plantar foot lesions and cellulitis with Staphylococcus aureus. 5. History of duodenitis. 6. History of diabetes. 7. History of pulmonary embolus. 8. History of colitis. 9. History of pancreatitis. 10.History of peripheral neuropathy. 11.History of appendectomy. 12.History of degenerative joint disease. 13.History of nicotine dependence. 14.Right shoulder nonmalignant tumor, history of. RECOMMENDATION: Recommend to continue current management and symptomatic treatment. Monitor blood sugars closely. Surgical evaluation. Guarded prognosis. Further recommendations to follow. Will await the final report of the cultures. MMODL / IJN: [id number] /
[2017-10-11 16:58] LABS: Glucose,Whole Blood 208 mg/dL (75-99)
[2017-10-11] MEDS: ALPRAZolam 0.25 MG TAB PO PRN (18:43)
[2017-10-11] MEDS: INSULIN DETEMIR 100 UNIT/ML 10 ML VIAL SQ SCH (20:47)
[2017-10-11 20:56] LABS: Glucose,Whole Blood 226 mg/dL (75-99)
[2017-10-12] MEDS: AMPICILLIN-SULBACTAM 1.5 GM in SODIUM CHLORIDE 0.9% 50 ML IVPB SCH ×4 (00:52→18:12)
[2017-10-12] MEDS: HYDROcodone/APAP 5-325MG 1 EACH TAB PO PRN ×3 (00:53→15:59)
[2017-10-12] MEDS: ONDANSETRON 4 MG/2 ML VIAL IVP PRN ×2 (04:50→20:21)
[2017-10-12] MEDS: MORPHINE SULFATE IR 15 MG TABLET PO PRN ×5 (04:50→22:44)
[2017-10-12 06:49] LABS: Glucose,Whole Blood 197 mg/dL (75-99)
[2017-10-12 07:45] LABS: Anion Gap 7 mmol/L; Blood Urea Nitrogen 7 mg/dL (7-17); Calcium 9.3 mg/dL (8.4-10.2); Carbon Dioxide 33 mmol/L (22-30); Chloride 103 mmol/L (98-107); Glucose 178 mg/dL (74-99); Potassium 4.3 mmol/L (3.5-5.1); Sodium 143 mmol/L (137-145)
[2017-10-12] MEDS: INSULIN ASPART 100 UNIT/ML 1 ML 10 ML VIAL SQ SCH ×4 (07:49→20:21)
[2017-10-12] MEDS: PANTOPRAZOLE 40 MG TABLET PO SCH (07:49)
[2017-10-12] MEDS: HEPARIN SODIUM,PORCINE 5,000 UNIT/ML 1 ML VIAL SQ SCH ×3 (07:50→20:25)
[2017-10-12] MEDS: DOCUSATE 100 MG CAP PO SCH (07:50)
[2017-10-12] MEDS: PARoxetine 20 MG TAB PO SCH (07:50)
[2017-10-12] MEDS: NICOTINE 14MG/24HR PATCH TRANSDERM SCH (07:50)
[2017-10-12] MEDS: GABAPENTIN 400 MG CAP PO SCH ×3 (07:50→20:21)
[2017-10-12] MEDS: ALPRAZolam 0.25 MG TAB PO PRN ×2 (07:58→17:16)
--- NOTE | 2017-10-12 08:34 | P.PN ---
Progress Note - Text Progress Note Date: 10/12/17 The patient was in nuclear medicine receiving a bone scan while is rounding. Patient be evaluated tomorrow.
[2017-10-12 08:47] LABS: Basophils % (A) 1 %; Eosinophils # (A) 0.2 k/uL (0-0.7); Eosinophils % (A) 4 %; HCT 37.3 % (34.0-46.0); HGB 11.5 gm/dL (11.4-16.0); Hypochromasia Slight; Lymphocytes # (A) 2.3 k/uL (1.0-4.8); Lymphocytes % (A) 45 %; MCH 26.4 pg (25.0-35.0); MCV 85.2 fL (80.0-100.0); Mean Platelet Volume 6.9; Monocytes # (A) 0.3 k/uL (0-1.0); Monocytes % (A) 6 %; Neutrophils # (A) 2.1 k/uL (1.3-7.7); Neutrophils % (A) 42 %; Platelet Count 212 k/uL (150-450); RBC 4.37 m/uL (3.80-5.40); RDW 12.7 % (11.5-15.5)
[2017-10-12] MEDS ORDERED: MAGNESIUM HYDROXIDE 2,400 MG/10 ML CUP PO PRN (10:50)
[2017-10-12] MEDS ORDERED: POLYETHYLENE GLYCOL 3350 17 GM POWD.PACK PO STA (10:53)
[2017-10-12 11:36] LABS: Glucose,Whole Blood 164 mg/dL (75-99)
--- NOTE | 2017-10-12 14:19 | NM ---
EXAMINATION TYPE: NM bone 3 phase DATE OF EXAM: 10/12/2017 COMPARISON: NONE HISTORY: Open wound on the right great toe Triple phase bone scintigraphy was performed following the injection of24.4 mCi Tc 99m MDP. Immediat e images and 5 hours post injection images acquired. FINDINGS: Flow images demonstrate increased flow to the right foot. Pool images show increased activity in the region of the right great and second toe as well as in the left MTP joint. Delayed images demonstrate mild increased activity throughout the right great toe as well as the right first MTP joint. There a re also degenerative change in both ankles as well as in the tarsal bones on the right. IMPRESSION: I COULD NOT EXCLUDE OSTEOMYELITIS INVOLVING THE RIGHT GREAT TOE.
--- NOTE | 2017-10-12 16:42 | PN ---
PROGRESS NOTE DATE OF SERVICE: 10/12/2017 This 52-year-old woman who was admitted with abdominal pain had gastritis and gastroenteritis. The patient is still being evaluated for MRSA. A bone scan has been done. Right great toe osteomyelitis could not be ruled out. No chest pain. No palpitations. No fever. PHYSICAL EXAM: Alert and oriented x3. Pulse is 77, blood pressure 130/81, respirations 14, temperature 98 degrees, pulse ox 98% on room air. HEENT: Conjunctivae normal. NECK: No jugular venous distention. CARDIOVASCULAR: S1, S2. RESPIRATORY: Breath sounds diminished in the bases. ABDOMEN: Soft, minimal diffuse tenderness noted. No mass palpable. LEGS: Significant cellulitis. NERVOUS SYSTEM: No focal abscess. LABS: CBC within normal limits. Accu-Cheks 197. ASSESSMENT: 1. Abdominal pain with possible acute gastritis and gastroenteritis, status post EGD showing gastritis. 2. Status post colonoscopy showing colonic polyp. 3. Rule out osteomyelitis of the right big toe. 4. Possible irritable bowel syndrome. 5. Bilateral . The patient has cellulitis with Staph aureus. 6. History of duodenitis. 7. History of diabetes mellitus type 2. 8. History of pulmonary embolism. 9. History colitis. 10.History of pancreatitis. 11.History of peripheral neuropathy. 12.History of appendectomy. 13.History of degenerative joint disease. 14.History of nicotine dependence. 15.Right shoulder nonmalignant tumor, history of. RECOMMENDATIONS AND DISCUSSION: I recommend to continue current management and symptomatic treatment. Otherwise at this time, monitor closely. Surgical evaluation. We will continue to monitor. Guarded prognosis. Further recommendations to follow. MMODL / IJN: [id number] / MTDD
[2017-10-12 17:52] LABS: Glucose,Whole Blood 165 mg/dL (75-99)
[2017-10-12 20:25] LABS: Glucose,Whole Blood 330 mg/dL (75-99)
[2017-10-12] MEDS: TEMAZEPAM 15 MG CAP PO PRN (20:26)
[2017-10-12] MEDS: INSULIN DETEMIR 100 UNIT/ML 10 ML VIAL SQ SCH (20:39)
[2017-10-12] MEDS: ALPRAZolam 0.5 MG TAB PO PRN (22:44)
[2017-10-13] MEDS: HYDROcodone/APAP 5-325MG 1 EACH TAB PO PRN ×3 (01:28→15:11)
[2017-10-13] MEDS: AMPICILLIN-SULBACTAM 1.5 GM in SODIUM CHLORIDE 0.9% 50 ML IVPB SCH ×2 (01:29→07:48)
[2017-10-13 01:32] VITALS: RESP 16
[2017-10-13 06:48] LABS: Basophils # (A) 0.1 k/uL (0-0.2); Basophils % (A) 1 %; Eosinophils # (A) 0.3 k/uL (0-0.7); Eosinophils % (A) 5 %; HGB 11.7 gm/dL (11.4-16.0); Hypochromasia Moderate; Lymphocytes # (A) 3.2 k/uL (1.0-4.8); Lymphocytes % (A) 45 %; MCHC 30.1 g/dL (31.0-37.0); MCV 86.5 fL (80.0-100.0); Mean Platelet Volume 6.9; Monocytes # (A) 0.5 k/uL (0-1.0); Monocytes % (A) 7 %; Neutrophils # (A) 2.9 k/uL (1.3-7.7); Neutrophils % (A) 40 %; Platelet Count 224 k/uL (150-450); RBC 4.51 m/uL (3.80-5.40); RDW 12.7 % (11.5-15.5); WBC 7.1 k/uL (3.8-10.6)
[2017-10-13 07:14] LABS: Glucose,Whole Blood 259 mg/dL (75-99)
[2017-10-13 07:18] LABS: Anion Gap 10 mmol/L; Blood Urea Nitrogen 10 mg/dL (7-17); Calcium 9.2 mg/dL (8.4-10.2); Carbon Dioxide 28 mmol/L (22-30); Chloride 103 mmol/L (98-107); Glucose 230 mg/dL (74-99); Potassium 4.7 mmol/L (3.5-5.1); Sodium 141 mmol/L (137-145)
[2017-10-13] MEDS: INSULIN ASPART 100 UNIT/ML 1 ML 10 ML VIAL SQ SCH ×4 (07:49→22:03)
[2017-10-13] MEDS: MORPHINE SULFATE IR 15 MG TABLET PO PRN ×4 (07:53→22:01)
[2017-10-13] MEDS: ONDANSETRON 4 MG/2 ML VIAL IVP PRN ×3 (07:54→23:31)
[2017-10-13] MEDS: GABAPENTIN 400 MG CAP PO SCH ×3 (07:54→22:02)
[2017-10-13] MEDS: NICOTINE 14MG/24HR PATCH TRANSDERM SCH (07:54)
[2017-10-13] MEDS: DOCUSATE 100 MG CAP PO SCH (07:54)
[2017-10-13] MEDS: PANTOPRAZOLE 40 MG TABLET PO SCH (07:55)
[2017-10-13] MEDS: PARoxetine 20 MG TAB PO SCH (07:55)
--- NOTE | 2017-10-13 07:55 | PN ---
PROGRESS NOTE DATE OF SERVICE: 10/12/2017. REASON FOR FOLLOWUP: Right diabetic foot ulcer with underlying osteomyelitis. INTERVAL HISTORY: The patient is afebrile. She is breathing comfortably. Complaining of some pain in the right big toe area. No drainage from the wound. Still having some abdominal pain and no bowel movement. EXAMINATION: Blood pressure 117/74 with a pulse of 91, temperature of 98.4. She is 98% on room air. General description is a middle-aged female lying in bed in no distress. Respiratory system: Unlabored breathing, clear to auscultation anteriorly. Heart S1, S2. Regular rate and rhythm. Abdomen soft, no tenderness. The right foot plantar ulcer with some callus surrounding it. No drainage. LABS: White count of 5k. Wound culture with MSSA. However, the bone scan has been reported as positive for osteomyelitis. DIAGNOSTIC IMPRESSION AND PLAN: Patient with right diabetic foot ulcer with MSSA infection with concern for possible osteomyelitis. The bone scan will be reviewed with the radiologist and if it is lighting up at the site of ulcer, then we will be ordering a PICC line for outpatient IV antibiotic therapy. The patient did have a previous PICC lines and no history of IV drug use. MMODL / IJN: [id number] / TIANA
[2017-10-13] MEDS ORDERED: MAGNESIUM HYDROXIDE 2,400 MG/10 ML CUP PO STA (07:59)
[2017-10-13] MEDS: HEPARIN SODIUM,PORCINE 5,000 UNIT/ML 1 ML VIAL SQ SCH ×2 (10:06→22:01)
[2017-10-13] MEDS ORDERED: RX INFO: IV CONTRAST WAS GIVEN 1 EACH MISC MISCELLANE PRN (11:13)
[2017-10-13] MEDS ORDERED: MORPHINE SULFATE 4 MG/ML SYRINGE IV PRN (11:14)
[2017-10-13] MEDS: IOHEXOL 350 MG/ML 25 ML BOTTLE (ORAL USE) PO PRN ×2 (12:03→13:02)
[2017-10-13 12:04] LABS: Glucose,Whole Blood 151 mg/dL (75-99)
[2017-10-13] MEDS: ALPRAZolam 0.5 MG TAB PO PRN (12:07)
--- NOTE | 2017-10-13 12:34 | P.GSCN ---
History of Present Illness Consult date: 10/13/17 Reason for Consult: Abdominal pain History of present illness: 52-year-old female being seen for a surgical eval at the request of the attending for chronic abdominal pain. Patient gives history of having diffuse abdominal pain crampy sensation for the past several months at least since . Patient stated it was associated with decrease appetite unintentionally lost 10 pounds over the last several months. States felt nauseated no active emesis. Has a history of chronic pain with chronic opiate use with chronic constipation. Patient states the pain is in the cocyx area not able to pass any gas feels like the stool gets to the rectum is not able to push it out without experiencing abdominal pain.. Patient had a recent CAT scan of the abdomen pelvis at [facility] which indicated that there was no evidence of a bowel obstruction. Multiple pancreatic calcification consistent with chronic pancreatitis and the medial margin of the adjacent duodenum possible cystic lesion. Additionally the patient had an open wound on the right great toe being followed by infectious disease. Bone scan done on October 12 could not exclude osteomyelitis involving the right great toe It's noted the patient just recently per GI service on October 10 where he underwent an EGD which showed mild antral gastritis with a small hiatal hernia. Colonoscopy reviewed a 5 mm to 7 mm descending colon and transverse colon polyp respectively status post polypectomy Review of Systems Essentially unremarkable except as mentioned in the present illness Past Medical History Past Medical History: Diabetes Mellitus, Pulmonary Embolus (PE) Additional Past Medical History / Comment(s): colitis, polps, ibs, dm 2, pancreatitis, neuropathy, pulmonary embolus 2017 History of Any Multi-Drug Resistant Organisms: None Reported Past Surgical History: Appendectomy, Cholecystectomy, Orthopedic Surgery Additional Past Surgical History / Comment(s): tumor right shoulder non- malignant, L ankle surgery, nose surgery Past Anesthesia/Blood Transfusion Reactions: No Reported Reaction Past Psychological History: No Psychological Hx Reported Smoking Status: Former smoker Past Alcohol Use History: None Reported Additional Past Alcohol Use History / Comment(s): Patient smokes about 1.5 packs a day Past Drug Use History: Marijuana Additional Drug Use History / Comment(s): Patient smokes marijuana for nausea and pain. - Past Family History Mother Family Medical History: Cancer, Congestive Heart Failure (CHF) Additional Family Medical History / Comment(s): Heart disease Father Family Medical History: No Reported History Medications and Allergies Home Medications Medication Instructions Recorded Confirmed Type Docusate [Colace] 100 mg PO DAILY 10/08/17 10/08/17 History Gabapentin 800 mg PO TID 10/08/17 10/08/17 History Insulin Glargine,Hum.rec.anlog 20 unit SQ HS 10/08/17 10/08/17 History [Lantus Solostar] Insulin Regular [humuLIN R] See Protocol SQ TID PRN 10/08/17 10/08/17 History Morphine Sulfate 15 mg PO Q4H PRN 10/08/17 10/08/17 History Ondansetron HCl [Zofran] 4 mg PO Q4H PRN 10/08/17 10/08/17 History PARoxetine HCL [Paxil] 40 mg PO DAILY 10/08/17 10/08/17 History Women's Laxative 1 tab PO DAILY 10/08/17 10/08/17 History Nicotine 14Mg/24Hr Patch [Habitrol] 1 patch TRANSDERM DAILY #30 patch 10/13/17 Rx ceFAZolin [Kefzol] 2 gm IVP Q8HR #136 each 10/13/17 Rx Allergies Allergy/AdvReac Type Severity Reaction Status Date / Time latex Allergy Unknown Verified 10/09/17 07:13 Surgical - Exam Vital Signs Temp Pulse Resp BP Pulse Ox 98.4 F 76 18 128/86 97 10/08/17 22:01 10/08/17 22:01 10/08/17 22:01 10/08/17 22:01 10/08/17 22:01 GENERAL APPEARANCE: 52-year-old female patient is alert, oriented, in no acute distress. Talkative VITAL SIGNS: Reviewed HEENT: Head is normocephalic and atraumatic. Pupils are equal and reactive. The nares are patent. Oropharynx is clear without lesions. NECK: Supple without lymphadenopathy. Traches midline. HEART: S1, S2. Regular rate and rhythm. No murmur denying chest pain LUNGS: No crackles or wheezes are heard. On room air no cough noted ABDOMEN: Soft, nontender, nondistended with good bowel sounds. No peritoneal signs. No palpable organomegaly or masses. EXTREMITIES: Right big toe area callus no drainage noted no edema noted bilaterally NEUROLOGICAL: No focal deficits. Strength and sensation are grossly intact. Rectum external hemorrhoids noted no stool noted in the rectal vault Results - Labs 10/14/17 07:13 10/14/17 07:13 Abnormal Lab Results - Last 24 Hours (Table) 10/12/17 10/12/17 10/12/17 Range/Units 11:22 17:50 20:18 MCHC (31.0-37.0) g/dL Glucose (74-99) mg/dL POC Glucose (mg/dL) 164 H 165 H 330 H (75-99) mg/dL 10/13/17 10/13/17 10/13/17 Range/Units 06:24 06:24 07:08 MCHC 30.1 L (31.0-37.0) g/dL Glucose 230 H (74-99) mg/dL POC Glucose (mg/dL) 259 H (75-99) mg/dL Microbiology - Last 24 Hours (Table) 10/10/17 10:21 Blood Culture - Preliminary Blood No Growth after 48 hours 10/09/17 15:48 Gram Stain - Final Toe - Right First Wound Culture - Final Staphylococcus aureus Diabetes panel 10/13/17 Range/Units 06:24 Sodium 141 (137-145) mmol/L Potassium 4.7 (3.5-5.1) mmol/L Chloride 103 (98-107) mmol/L Carbon Dioxide 28 (22-30) mmol/L BUN 10 (7-17) mg/dL Creatinine 0.70 (0.52-1.04) mg/dL Glucose 230 H (74-99) mg/dL Calcium 9.2 (8.4-10.2) mg/dL Calcium panel 10/13/17 Range/Units 06:24 Calcium 9.2 (8.4-10.2) mg/dL Pituitary panel 10/13/17 Range/Units 06:24 Sodium 141 (137-145) mmol/L Potassium 4.7 (3.5-5.1) mmol/L Chloride 103 (98-107) mmol/L Carbon Dioxide 28 (22-30) mmol/L BUN 10 (7-17) mg/dL Creatinine 0.70 (0.52-1.04) mg/dL Glucose 230 H (74-99) mg/dL Calcium 9.2 (8.4-10.2) mg/dL Adrenal panel 10/13/17 Range/Units 06:24 Sodium 141 (137-145) mmol/L Potassium 4.7 (3.5-5.1) mmol/L Chloride 103 (98-107) mmol/L Carbon Dioxide 28 (22-30) mmol/L BUN 10 (7-17) mg/dL Creatinine 0.70 (0.52-1.04) mg/dL Glucose 230 H (74-99) mg/dL Calcium 9.2 (8.4-10.2) mg/dL Assessment and Plan Assessment: Impression Chronic lower abdominal pain unclear etiology Recent October EGD done by GI service showed mild antral gastritis and small hiatal hernia Colonoscopy October 10 by GI service reviewed colon polyp status post polypectomy Chronic pain with opiate dependency History of chronic constipation suspect opiate-induced Diabetic ulcer right right toe with bone scan showing no evidence of osteomyelitis CAT scan of the abdomen pelvis from [facility] recently done showed no evidence of a bowel obstruction multiple pancreatic calcifications consistent with chronic pancreatitis Current every day smoker Acute on chronic abdominal pain since Thanksgiving unclear etiology Outside CAT scan reported medial margin of adjacent duodenal lesion cyst possible cystic with ectasia of the biliary tree with normal pancreatic enzymes duodenal Plan CT abdomen pelvis with oral and IV contrast follow-up on the results with further surgical recommendations pending Will follow with you DVT and GI prophylaxis. Continue with recommendations by GI service defer to Surgical consultation note dictated for dr morales The above impression and plan of care have been discussed and directed by signing physician. Luana Crocker nurse practitioner acting as scribe for signing physician.
[2017-10-13] MEDS ORDERED: POLYETHYLENE GLYCOL 3350 17 GM POWD.PACK PO STA (13:04)
[2017-10-13] MEDS ORDERED: LIDOCAINE 2% INJ 20 MG/ML SQ ONE (13:26)
[2017-10-13] MEDS ORDERED: LIDOCAINE 2% INJ 20 MG/ML (20 ML MDV) ONE (13:27)
--- NOTE | 2017-10-13 14:15 | IR ---
PICC LINE PLACEMENT: HISTORY: Infection requiring long-term antibiotic therapy PROCEDURE: Ultrasound and fluoroscopic guidance of PICC line placement. COMPLICATIONS: None ANESTHESIA: 1. 1% Lidocaine locally. FINDINGS/TECHNIQUE: The procedure was explained to the patient. The risks, complications, benefits and alternatives were discussed and any questions were answered. Informed consent was obtained. The patient was placed supine on the fluoroscopic table and prepped and draped in the usual sterile fash ion. Utilizing a 21 gauge needle and sonographic and fluoroscopic guidance, access in the left basi lic vein was achieved and there is placement of a 0.018 guidewire. The vein is patent. A 4-F sheath was placed over the guidewire. The guidewire and dilator were removed and a 4-F. PICC line was plac ed through the sheath with the tip at the level of the SVC. The sheath was removed, the catheter was flushed and sutured into position. The patient was stable throughout the procedure and remained sta ble upon discharge from the Department of Radiology. The vein puncture was patent under ultrasound. A escoto scale image was obtained to document patency of the vein punctured. All elements of the maximal barrier technique were utilized. FLUOROSCOPY TIME: 2.1 minute, one image submitted. IMPRESSION: Successful PICC line placement under ultrasound and fluoroscopic guidance.
[2017-10-13] MEDS ORDERED: ALPRAZolam 0.5 MG TAB PO PRN (15:03)
[2017-10-13] MEDS: ceFAZolin IN SWFI 2 GM/20 ML SYRINGE IVP SCH ×2 (15:12→23:18)
--- NOTE | 2017-10-13 16:03 | CT ---
EXAMINATION TYPE: CT abdomen pelvis w con DATE OF EXAM: 10/13/2017 COMPARISON: NONE INDICATION: RUQ pain DLP: 1647 mGycm, Automated exposure control for dose reduction was used. CONTRAST: 100 ml mL of Omnipaque 300. Study performed with Oral Contrast TECHNIQUE: Axial images were obtained from above the diaphragm to the pubic rami in the axial plane a t 5 mm thick sections. Reconstructed images are reviewed on the computer in the coronal plane. FINDINGS: Limited CT sections are obtained the lung bases. The lung bases are clear. CT ABDOMEN: Pancreas is a dilated common bile duct measuring 1.9 cm. Liver: Intrahepatic biliary air is present. Spleen: Normal Pancreas: Pancreas is atrophic. Pancreatic duct is dilated. Calcifications present. Correlate for chr onic pancreatitis. Adrenal glands: The adrenal glands are normal. Gallbladder: Surgically absent Kidneys: No masses are evident. No hydronephrosis is present. No cysts are present. Delayed images were obtained through the kidneys, which remain unremarkable. Aorta: Vascular calcification is within the aorta. Inferior vena cava: Normal. CT PELVIS: Loops of bowel within the abdomen and pelvis are normal. There are loops of bowel which are incom pletely distended or lack oral contrast limiting their evaluation. Appendix: Not identified. No suspicious inflammatory changes are evident. Urinary bladder: Normal Genitourinary structures: Uterus and adnexal regions are unremarkable. Osseous structures: No suspicious lytic or sclerotic lesions. IMPRESSIONS: 1. Prominent common bile duct at the head of the pancreas and dilated pancreatic duct. Pancreas appe ars atrophic and may have chronic pancreatitis changes with calcification
[2017-10-13] MEDS ORDERED: NA PHOS,M-B/NA PHOS,DI-BA 133 ML ENEMA RECTAL ONE (16:24)
[2017-10-13 17:13] LABS: Glucose,Whole Blood 179 mg/dL (75-99)
[2017-10-13 20:15] LABS: Glucose,Whole Blood 323 mg/dL (75-99)
[2017-10-13] MEDS: TEMAZEPAM 15 MG CAP PO PRN (22:01)
[2017-10-13] MEDS: INSULIN DETEMIR 100 UNIT/ML 10 ML VIAL SQ SCH (22:03)
--- NOTE | 2017-10-13 23:33 | PN ---
PROGRESS NOTE DATE OF SERVICE: 10/13/2017. INTERVAL HISTORY: This 52-year-old woman who was admitted with abdominal pain with possible acute gastritis and gastroenteritis is being closely monitored. The patient also had a CT scan. The patient also had emesis a growing from the culture. Osteomyelitis also suspected. No chest pain. No palpitations. No fever. EXAM: Alert and oriented x3. Pulse 83, blood pressure 120/82, respirations 16, temperature 98.2, pulse ox 98% on room air HEENT is conjunctivae normal. CARDIOVASCULAR: S1 and S2 muffled. LUNGS: Breath sounds diminished at the bases. No crackles. ABDOMEN: Soft, nontender. LEGS: No edema. NERVOUS SYSTEM: No focal deficits. LABS: Accu-Cheks 259 and 151. ASSESSMENT: 1. Abdominal pain with possible acute gastritis and gastroenteritis, status post esophagogastroduodenoscopy showing gastritis. 2. Methicillin susceptible staphylococcus aureus from the right big toe and as well as osteomyelitis of the right great toe, possibly. 3. Possible irritable bowel syndrome. 4. Bilateral leg cellulitis. 5. History of duodenitis. 6. Diabetes type 2. 7. History of pulmonary embolism. 8. History of colitis. 9. History of pancreatitis. 10.History of neuropathy. 11.History of appendectomy. 12.History of degenerative joint disease. 13.History of nicotine dependence. 14.Right shoulder nonmalignant tumor history and surgery:. RECOMMENDATIONS: Continue current management and treatment. Otherwise at this time, PICC line and outpatient antibiotics. Otherwise, abdominal pain. Evaluated by surgery, no acute issues. Continue to monitor. Guarded prognosis because of multiple consultants. Further recommendations to follow. MMODL / IJN: [id number] /
[2017-10-14] MEDS: HYDROcodone/APAP 5-325MG 1 EACH TAB PO PRN ×2 (00:32→09:14)
--- NOTE | 2017-10-14 06:25 | PN ---
PROGRESS NOTE DATE OF SERVICE: 10/13/2017. REASON FOR FOLLOW UP: Right big toe MSSA osteomyelitis. INTERVAL HISTORY: The patient is afebrile. She has been breathing comfortably. Denies significant chest pain or cough. No nausea, vomiting or any diarrhea or any worsening pain to the right big toe area. PHYSICAL EXAMINATION: Blood pressure is 120/82 with a pulse of 83, temperature of 98.4. She is 96% on room air. General description is a middle aged female lying in bed in no distress. Respiratory system: Unlabored breathing, clear to auscultation anteriorly. Heart S1, S2 regular rate and rhythm. Abdomen soft and no tenderness. Right foot is currently dressed up. No obvious drainage on the dressing. LABS: Hemoglobin is 11.7, white count 7.1. X-rays and bone scan was reviewed with radiologist Dr. Gurrola and shows evidence of osteomyelitis of the left big toe. DIAGNOSTIC IMPRESSION AND PLAN: Patient with a nonhealing wound at the plantar aspect of the right great toe. Culture positive for MSSA with bone scan positive likely underlying osteomyelitis. The patient did have a chronic wound. Antibiotic adjusted to cefazolin 2 g daily. She will get a PICC line for administration of antibiotic for at least 6 weeks with weekly monitoring of CBC BMP and sed rate. The patient did have previous PICC line and no history of IV drug use. Plan of care discussed with the admitting physician. CARA / JOSE: [id number] /
[2017-10-14 07:11] LABS: Glucose,Whole Blood 224 mg/dL (75-99)
[2017-10-14 07:27] VITALS: BP 101/69; PULSE 92; TEMP 97.8
[2017-10-14] MEDS: MORPHINE SULFATE IR 15 MG TABLET PO PRN (07:29)
[2017-10-14] MEDS: ONDANSETRON 4 MG/2 ML VIAL IVP PRN (07:30)
[2017-10-14] MEDS: NICOTINE 14MG/24HR PATCH TRANSDERM SCH (07:34)
[2017-10-14] MEDS: HEPARIN SODIUM,PORCINE 5,000 UNIT/ML 1 ML VIAL SQ SCH (07:34)
[2017-10-14] MEDS: PANTOPRAZOLE 40 MG TABLET PO SCH (07:35)
[2017-10-14] MEDS: DOCUSATE 100 MG CAP PO SCH (07:35)
[2017-10-14] MEDS: GABAPENTIN 400 MG CAP PO SCH (07:35)
[2017-10-14] MEDS: PARoxetine 20 MG TAB PO SCH (07:36)
[2017-10-14] MEDS: INSULIN ASPART 100 UNIT/ML 1 ML 10 ML VIAL SQ SCH (07:40)
[2017-10-14] MEDS: ceFAZolin IN SWFI 2 GM/20 ML SYRINGE IVP SCH (07:41)
[2017-10-14 07:45] LABS: Basophils # (A) 0.1 k/uL (0-0.2); Basophils % (A) 1 %; Eosinophils # (A) 0.2 k/uL (0-0.7); Eosinophils % (A) 4 %; HCT 39.7 % (34.0-46.0); HGB 11.8 gm/dL (11.4-16.0); Hypochromasia Moderate; Lymphocytes # (A) 2.9 k/uL (1.0-4.8); Lymphocytes % (A) 47 %; MCH 25.9 pg (25.0-35.0); MCHC 29.8 g/dL (31.0-37.0); Mean Platelet Volume 6.9; Monocytes # (A) 0.4 k/uL (0-1.0); Monocytes % (A) 6 %; Neutrophils # (A) 2.5 k/uL (1.3-7.7); Neutrophils % (A) 40 %; Platelet Count 215 k/uL (150-450); RBC 4.57 m/uL (3.80-5.40); RDW 12.9 % (11.5-15.5); WBC 6.2 k/uL (3.8-10.6)
[2017-10-14 08:08] LABS: Anion Gap 9 mmol/L; Blood Urea Nitrogen 12 mg/dL (7-17); Calcium 9.6 mg/dL (8.4-10.2); Carbon Dioxide 30 mmol/L (22-30); Chloride 102 mmol/L (98-107); Glucose 193 mg/dL (74-99); Potassium 4.4 mmol/L (3.5-5.1); Sodium 141 mmol/L (137-145)
--- NOTE | 2017-10-14 10:53 | P.PN ---
Subjective Progress Note Date: 10/14/17 52-year-old female seen and examined sitting up in bed. Patient continues to report having chronic abdominal discomfort feels like it is unchanged since . Patient has been seen by surgical service at the request of the attending. Did have a CAT scan of the abdomen and pelvis yesterday. The CAT scan report was reviewed. Pancreas appears atropic may have chronic pancreatitis changes with calcification no acute findings patient reports tolerating a diet no nausea vomiting Objective - Vital Signs Vital signs: Vital Signs Temp 97.8 F 10/14/17 07:26 Pulse 92 10/14/17 07:26 Resp 16 10/14/17 08:14 BP 101/69 10/14/17 07:26 Pulse Ox 98 10/14/17 07:26 Intake & Output 10/13/17 10/14/17 10/14/17 18:59 06:59 18:59 Intake Total 1580 Balance 1580 Intake: Intake, IV Titration 50 Amount Ampicillin-Sulbactam 1.5 50 gm In Sodium Chloride 0.9 % 50 ml @ 100 mls/hr IVPB Q6HR [facility] Rx#:[id number] Oral 1530 Other: Voiding Method Toilet Toilet # Voids 2 3 # Bowel Movements 1 - Exam Focused exam Abdomen soft nondistended bowel tones present nontender reports no nausea vomiting tolerating diet - Labs CBC & Chem 7: 10/14/17 07:13 10/14/17 07:13 Labs: Abnormal Lab Results - Last 24 Hours (Table) 10/13/17 10/13/17 10/13/17 Range/Units 11:47 17:04 20:12 MCHC (31.0-37.0) g/dL Glucose (74-99) mg/dL POC Glucose (mg/dL) 151 H 179 H 323 H (75-99) mg/dL 10/14/17 10/14/17 10/14/17 Range/Units 07:08 07:13 07:13 MCHC 29.8 L (31.0-37.0) g/dL Glucose 193 H (74-99) mg/dL POC Glucose (mg/dL) 224 H (75-99) mg/dL Microbiology - Last 24 Hours (Table) 10/10/17 10:21 Blood Culture - Preliminary Blood No Growth after 72 hours Assessment and Plan Assessment: Impression Chronic lower abdominal pain unclear etiology Recent October EGD done by GI service showed mild antral gastritis and small hiatal hernia Colonoscopy October 10 by GI service reviewed colon polyp status post polypectomy Chronic pain with opiate dependency History of chronic constipation suspect opiate-induced Diabetic ulcer right right toe with bone scan showing no evidence of osteomyelitis CAT scan of the abdomen pelvis from [facility] recently done showed no evidence of a bowel obstruction multiple pancreatic calcifications consistent with chronic pancreatitis Current every day smoker Acute on chronic abdominal pain since Thanksgiving unclear etiology Outside CAT scan reported medial margin of adjacent duodenal lesion cyst possible cystic with ectasia of the biliary tree with normal pancreatic enzymes duodenal Plan Okay to be discharged from a surgical perspective no further surgical recommendations at this time defer to the timing to the attending DVT and GI prophylaxis. Continue with recommendations by GI service defer to Surgical consultation note dictated for dr morales The above impression and plan of care have been discussed and directed by signing physician. Luana Crocker nurse practitioner acting as scribe for signing physician.
--- NOTE | 2017-10-14 12:43 | PN ---
PROGRESS NOTE DATE OF SERVICE: 10/14/2017 REASON FOR FOLLOWUP: Right big toe diabetic foot infection with osteomyelitis, MSSA. INTERVAL HISTORY: The patient is afebrile, she is breathing comfortably. Denies having any chest pain. No cough. No abdominal pain or any worsening pain in the right big toe area. She did get a PICC line. Antibiotic has been arranged for the patient. PHYSICAL EXAMINATION: Blood pressure 101/59 with a pulse of 90, temperature of 97.8. She is 98% on room air. General description is a middle-aged female up in the room in no distress. RESPIRATORY SYSTEM: Unlabored breathing, clear to auscultation anteriorly. HEART: S1, S2. Regular rate and rhythm. ABDOMEN: Soft, no tenderness. Right big toe is dressed and no obvious drainage on the dressing. LABS: Hemoglobin is 11.8, white count is 6.2, BUN of 12, creatinine 0.89. 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 Bone scan was positive, culture positive for MSSA. She is currently on cefazolin 2 g q.8 for at least 6 weeks. Local wound care with Aquacel Silver dressing, offloading and follow up in the office next week. MMODL / IJN: [id number] /
--- NOTE | 2017-10-15 13:34 | P.DS ---
Providers Date of admission: 10/08/17 23:34 Expected date of discharge: 10/14/17 Attending physician: Jt Vasquez Consults: 10/09/17 15:20 Consult Physician Routine Consulting Provider: Duke Richter Consult Reason/Comments: plantart lesion- keratodrma?? Do you want consulting provider notified?: Yes 10/11/17 11:44 Consult Physician Urgent Consulting Provider: Oniel Tamayo Consult Reason/Comments: abdominal pain Do you want consulting provider notified?: Yes Primary care physician: Yung Otto [place] [facility] Course: Final diagnoses 1. Abdominal pain of possible acute gastritis and gastroenteritis, status post EGD showing gastritis 2. MSSA from the right great toe and possible osteomyelitis 3. BIlateral leg cellulitis 4. Possible irritable bowel syndrome 5. History of duodenitis 6. Diabetes mellitus type 2 Hospital course: This a 52-year-old female admitted with abdominal pain, possible acute gastritis and gastroenteritis. Evaluated by general surgery, GI and infectious disease. Maintained on IV antibiotics. Underwent EGD reporting gastritis. Osteomyelitis suspected as per bone scan. PICC line placed for outpatient IV antibiotics. Significant clinical improvement. Patient has been cleared by consults for discharge. Patient is being discharged home in a stable condition with guarded prognosis. Physical EXAM: VSS. Alert and oriented 3, no acute distress.CVS: Muffled S1 and S2,LUNGS: Bilateral bases diminished, rhonchi or wheezing.ABD: Soft nontender positive bowel sounds.NERVOUS: No focal deficits The impression and plan of care has been dictated as directed. : I performed a history and examination of this patient, discussed the same with the dictator. I agree with the dictator's note ,documented as a scribe. Any additional findings or plans will be noted. Time taken: 35 minutes Patient Condition at Discharge: Stable Plan - Discharge Summary Discharge Rx Participant: Yes New Discharge Prescriptions: New ceFAZolin [Kefzol] 2 gm IVP Q8HR #136 each Nicotine 14Mg/24Hr Patch [Habitrol] 1 patch TRANSDERM DAILY #30 patch Continue Women's Laxative 1 tab PO DAILY Docusate [Colace] 100 mg PO DAILY PARoxetine HCL [Paxil] 40 mg PO DAILY Ondansetron HCl [Zofran] 4 mg PO Q4H PRN PRN Reason: Nausea Insulin Regular [humuLIN R] See Protocol SQ TID PRN PRN Reason: Blood Sugar - High Insulin Glargine,Hum.rec.anlog [Lantus Solostar] 20 unit SQ HS Morphine Sulfate 15 mg PO Q4H PRN PRN Reason: Pain Gabapentin 800 mg PO TID Discharge Medication List Docusate [Colace] 100 mg PO DAILY 10/08/17 [History] Gabapentin 800 mg PO TID 10/08/17 [History] Insulin Glargine,Hum.rec.anlog [Lantus Solostar] 20 unit SQ HS 10/08/17 [History ] Insulin Regular [humuLIN R] See Protocol SQ TID PRN 10/08/17 [History] Morphine Sulfate 15 mg PO Q4H PRN 10/08/17 [History] Ondansetron HCl [Zofran] 4 mg PO Q4H PRN 10/08/17 [History] PARoxetine HCL [Paxil] 40 mg PO DAILY 10/08/17 [History] Women's Laxative 1 tab PO DAILY 10/08/17 [History] Nicotine 14Mg/24Hr Patch [Habitrol] 1 patch TRANSDERM DAILY #30 patch 10/13/17 [ Rx] ceFAZolin [Kefzol] 2 gm IVP Q8HR #136 each 10/13/17 [Rx] Follow up Appointment(s)/Referral(s): [facility], [NON-STAFF] - [facility], [REFERRING] - Yung Otto MD [Primary Care Provider] - 10/29/17 10:00 am Duke Richter MD [STAFF PHYSICIAN] - 10/23/17 11:00 am Oniel Tamayo MD [STAFF PHYSICIAN] - 10/21/17 3:15 pm (Please make sure you have your ID and insurance card ) Ambulatory/Diagnostic Orders: Complete Blood Count w/diff [LAB.AMB] Time Frame: 3 Days, Location: Determined By Patient Patient Instructions/Handouts: Peripherally Inserted Central Catheters and Midline Catheters (DC) Activity/Diet/Wound Care/Special Instructions: [facility] will deliver supplies at 11 am 10/14/17. Care Plan Goals (MU): patient has home medication in pharmacy please get before discharge, tab to get it is in chart. aquacell silver every 48 hours and wrapped with kerlix. DIet: consist. carb. accu cheks achs, maintain log, take to F/U visit for further rec, activity: limited till f/u Discharge Disposition: HOME SELF-CARE
== END 2017-10-14 12:25 | disposition home health service (06) | DRG 392 ==
LOC: EC 21:59 → 3SUR 23:34
PROVIDERS: ADMIT Hospitalist; ATTEND Hospitalist
PROC: 0DBM8ZX Excision of Descending Colon, Via Natural or Artificial Opening Endoscopic, Diagnostic (ICD-10-PCS; 2017-10-10)
PROC: 0DBL8ZX Excision of Transverse Colon, Via Natural or Artificial Opening Endoscopic, Diagnostic (ICD-10-PCS; 2017-10-10)
PROC: 0DB68ZX Excision of Stomach, Via Natural or Artificial Opening Endoscopic, Diagnostic (ICD-10-PCS; principal; 2017-10-10 15:35)
PROC: 0DB98ZX Excision of Duodenum, Via Natural or Artificial Opening Endoscopic, Diagnostic (ICD-10-PCS; 2017-10-10 15:35)
PROC: 02HV33Z Insertion of Infusion Device into Superior Vena Cava, Percutaneous Approach (ICD-10-PCS; 2017-10-13)
DX: K29.00 Acute gastritis without bleeding (principal); E11.40 Type 2 diabetes mellitus with diabetic neuropathy, unspecified; E11.621 Type 2 diabetes mellitus with foot ulcer; F11.20 Opioid dependence, uncomplicated; E11.69 Type 2 diabetes mellitus with other specified complication; K86.0 Alcohol-induced chronic pancreatitis; L03.115 Cellulitis of right lower limb; L03.116 Cellulitis of left lower limb; M86.9 Osteomyelitis, unspecified; B95.61 Methicillin susceptible Staphylococcus aureus infection as the cause of diseases classified elsewhere; K52.9 Noninfective gastroenteritis and colitis, unspecified; D12.3 Benign neoplasm of transverse colon; D12.4 Benign neoplasm of descending colon; D25.9 Leiomyoma of uterus, unspecified; G89.29 Other chronic pain; K44.9 Diaphragmatic hernia without obstruction or gangrene; K58.9 Irritable bowel syndrome, unspecified; L97.519 Non-pressure chronic ulcer of other part of right foot with unspecified severity; F10.10 Alcohol abuse, uncomplicated; M19.90 Unspecified osteoarthritis, unspecified site; K57.90 Diverticulosis of intestine, part unspecified, without perforation or abscess without bleeding; F17.210 Nicotine dependence, cigarettes, uncomplicated; K59.03 Drug induced constipation; T40.605A Adverse effect of unspecified narcotics, initial encounter; Z79.4 Long term (current) use of insulin; Z79.899 Other long term (current) drug therapy; Z86.711 Personal history of pulmonary embolism; Z90.49 Acquired absence of other specified parts of digestive tract; Z82.49 Family history of ischemic heart disease and other diseases of the circulatory system; Z91.040 Latex allergy status; Y92.009 Unspecified place in unspecified non-institutional (private) residence as the place of occurrence of the external cause
CPT/HCPCS: 36415; 36569; 43239; 45385; 74177; 76937; 77001; 78315; 80048; 80053; 80306; 81003; 82947; 83036; 85025; 85652; 86140; 86780; 87040; 87070; 87077; 87086; 87186; 87205; 87324; 87390; 88305; 96361; 96374; 99285

== ENCOUNTER → 2018-06-01 | Outpatient (CLI) | payer OTHER ==
[2018-04-13 15:34] VITALS: BMI 24.7
[2018-06-01 14:08] VITALS: BP 133/84; PULSE 88; RESP 16
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
== END ==
LOC: PNWHC3 13:12
PROVIDERS: ATTEND Specialist
DX: G89.29 Other chronic pain (principal); M51.26 Other intervertebral disc displacement, lumbar region; M51.36 Other intervertebral disc degeneration, lumbar region; K21.9 Gastro-esophageal reflux disease without esophagitis; M46.96 Unspecified inflammatory spondylopathy, lumbar region; E11.9 Type 2 diabetes mellitus without complications; F17.200 Nicotine dependence, unspecified, uncomplicated; Z79.899 Other long term (current) drug therapy; Z79.891 Long term (current) use of opiate analgesic; Z79.4 Long term (current) use of insulin
CPT/HCPCS: 99211

== ENCOUNTER 2018-06-09 09:51 | Day surgery (SDC) | payer OTHER ==
[2018-06-05 10:59] VITALS: BMI 24.7
[~2018-06-09 09:51] MED LIST: LACTATED RINGERS 1,000 ML IV SCH
[2018-06-09 10:37] VITALS: RESP 16; TEMP 97.2
[2018-06-09] MEDS ORDERED: LIDOCAINE 1% 20 ML VIAL (10MG/ML) FOR IV START INTRADERMA ONE (10:40)
[2018-06-09 10:52] LABS: Glucose,Whole Blood 253 mg/dL (75-99)
[2018-06-09] MEDS ORDERED: INSULIN ASPART 100 UNIT/ML 1 ML 10 ML VIAL SQ ONE (11:14)
--- NOTE | 2018-06-09 11:37 | P.PCN ---
Date of Procedure: 06/09/18 Procedure(s) Performed: PREOPERATIVE DIAGNOSIS : 1- Lumbar spondylosis with Facet Arthropathy without myelopathy . 2- Lumber herniated disc disease POSTOPERATIVE DIAGNOSIS: 1- Lumbar spondylosis with Facet Arthropathy without myelopathy . 2- Lumber herniated disc disease PROCEDURE: Diagnostic bilateral L3 -4 , L4 -5 , and L5-S1 medial branch block under fluoroscopy ANESTHESIA: Local with Ropivacain 0.5 % 6 ml , moderate sedation with intravenous Versed 4 mg and Fentanyl 100 mcg. EBL: Minimal COMPLICATION: None. IV FLUIDS: 100 mL of normal saline. PROCEDURE INDICATION: Chronic low back pain secondary to Facet arthropathy unresponsive to conservative treatment. PROCEDURE DESCRIPTION: the patient was seen and identified in the preop holding area , risks and benefits and possible complications of the procedure and alternative were discussed with the patient, and the patient agreed to proceed with the procedure and signed the consent IV was started and vital signs monitored during the procedure and fluoroscopy was used to maximize the benefit and accuracy of the needle placement, and sedation was given to decrease patient anxiety, patient was taken to the procedure room and placed in prone position vital signs monitored in the back prepped with chlorhexidine X3 then under strict sterile technique using a right oblique fluoroscopy ,the junction of the transverse process and the superior articulating process of the right L3- 4 , L4- 5, and L5-S1 vertebra which corresponding to the fluoroscopy image of the eye of the Rylan dog on the block side for the medial branches and subsequently , after local infiltration of skin and subcu tissuies with Ropivacaine 0.5 % , one mL at each level , then 25-gauge Quincke-type needles , 3 needle was used , each one of them placed at the junction of the base of the transverse process and the superior articular process at the appropriate level, and the needle was advanced until the periosteum contacted, needle placement confirmed with AP oblique and lateral view and after appropriate needle placement confirmed, and after negative aspiration for heme and CSF and there was no paresthesia 1-1/2 mL of Ropivacaine 0.5% , then half mL injected at each level after negative aspiration the needle subsequently removed and the same procedure repeated for the left side at left side at L3-4, L4- 5 and L5-S1 levels. At the end of the procedure and the needles removed and a bandage applied after the skin was cleaned the cleaning solution patient taken to recovery room in stable condition and monitors in the recovery room for 20-30 minutes and discharged home in stable condition after discharge criteria met and patient will follow up with the pain clinic in 2-4 weeks I did not use steroid, for the procedure today .
[2018-06-09] MEDS ORDERED: IV FLUID CONTINUATION 1,000 ML IV ONE (11:43)
[2018-06-09 11:58] LABS: Glucose,Whole Blood 245 mg/dL (75-99)
[2018-06-09 12:45] VITALS: BP 119/80; PULSE 89
--- NOTE | 2018-06-09 12:52 | FL ---
Fluoroscopy HISTORY: Pain 7 seconds fluoroscopy time supplied to the referring clinician. 4 intraoperative C-arm images docume nt the procedure. See dictated report from anesthesia.
== END 2018-06-09 12:50 ==
LOC: ORPAIN 09:51
PROVIDERS: ATTEND Specialist
DX: G89.29 Other chronic pain (principal); M47.816 Spondylosis without myelopathy or radiculopathy, lumbar region; M51.26 Other intervertebral disc displacement, lumbar region; E11.9 Type 2 diabetes mellitus without complications; Z79.4 Long term (current) use of insulin; K21.9 Gastro-esophageal reflux disease without esophagitis; Z86.711 Personal history of pulmonary embolism; F17.200 Nicotine dependence, unspecified, uncomplicated; Z79.899 Other long term (current) drug therapy; Z91.040 Latex allergy status
CPT/HCPCS: 64493; 64494; 64495; J2250; J3010; 99152

== ENCOUNTER 2018-11-10 15:49 | Emergency (ER) | payer OTHER ==
[2018-11-10 15:58] VITALS: BP 118/77; PULSE 90; RESP 18; TEMP 98.4
--- NOTE | 2018-11-10 16:38 | ED ---
Lower Extremity Injury HPI - General Chief Complaint: Extremity Injury, Lower Stated Complaint: Fell leg/foot pain Time Seen by Provider: 11/10/18 16:03 Source: patient, RN notes reviewed, old records reviewed Mode of arrival: wheelchair Limitations: no limitations - History of Present Illness Initial Comments: Patient is a 53-year-old female presents emergency department today with complaints of left in leg pain. Patient reports that she bent leg backwards yesterday after slipping on the ice. Patient states that she's had history of screws and plates within the left tib-fib due to history of fracture. Patient states that this was surgically corrected at [facility] by Dr. Nolasco. Patient has had full range of motion in the foot. She was seen earlier today at the wound care center for a chronic wound over the left great toe. Patient states that she's had pain with ambulation and bearing weight. She reports the pain is worse over the lateral tib-fib. - Related Data Home Medications Medication Instructions Recorded Confirmed Gabapentin 800 mg PO TID 10/08/17 11/10/18 Insulin Glargine,Hum.rec.anlog 25 unit SQ HS 10/08/17 11/10/18 [Lantus Solostar] Morphine Sulfate 15 mg PO Q4H PRN 10/08/17 11/10/18 Ondansetron HCl [Zofran] 4 mg PO Q4H PRN 10/08/17 11/10/18 INSULIN LISPRO (humaLOG) [humaLOG] 0 units SQ TID PRN 06/05/18 11/10/18 PARoxetine HCL [Paxil] 40 mg PO DAILY 10/20/18 11/10/18 Allergies Allergy/AdvReac Type Severity Reaction Status Date / Time latex Allergy Swelling/hi Verified 11/10/18 15:57 ves Review of Systems ROS Statement: Those systems with pertinent positive or pertinent negative responses have been documented in the HPI. ROS Other: All systems not noted in ROS Statement are negative. Past Medical History Past Medical History: Diabetes Mellitus, GERD/Reflux, Pulmonary Embolus (PE) Additional Past Medical History / Comment(s): hx colitis and diverticulitis, hx migraines, insomnia, IBS, hx pancreatitis, ostemyelitis, hx back injury- has crushed disks, wound rt foot-rt side and little toe, hiatal hernia, History of Any Multi-Drug Resistant Organisms: None Reported Past Surgical History: Appendectomy, Cholecystectomy, Orthopedic Surgery Additional Past Surgical History / Comment(s): benign tumor removed from right shoulder , "stone removed from pancreas", ORIF left ankle, Past Anesthesia/Blood Transfusion Reactions: No Reported Reaction Past Psychological History: Anxiety, Depression Smoking Status: Current every day smoker Past Alcohol Use History: None Reported Past Drug Use History: None Reported - Past Family History Mother Family Medical History: Congestive Heart Failure (CHF) Additional Family Medical History / Comment(s): . Father Family Medical History: No Reported History General Exam - General Exam Comments Initial Comments: 53-year-old female. Alert and oriented 3. Patient appears in no significant distress. Limitations: no limitations General appearance: alert, in no apparent distress Head exam: Present: atraumatic, normocephalic, normal inspection Eye exam: Present: normal appearance, PERRL, EOMI. Absent: scleral icterus, conjunctival injection, periorbital swelling ENT exam: Present: normal exam, mucous membranes moist Neck exam: Present: normal inspection. Absent: tenderness, meningismus, lymphadenopathy Respiratory exam: Present: normal lung sounds bilaterally. Absent: respiratory distress, wheezes, rales, rhonchi, stridor Cardiovascular Exam: Present: regular rate, normal rhythm, normal heart sounds. Absent: systolic murmur, diastolic murmur, rubs, gallop, clicks GI/Abdominal exam: Present: soft, normal bowel sounds. Absent: distended, tenderness, guarding, rebound, rigid Extremities exam: Present: normal inspection, full ROM, normal capillary refill. Absent: tenderness, pedal edema, joint swelling, calf tenderness Left Knee exam: Present: normal inspection, full ROM Lower Leg exam: Present: normal inspection, full ROM, tenderness (Patient is tender over the lower one third of the lateral aspect of the lower leg. Some swelling noted. No bruising noted.), swelling Ankle exam: Present: normal inspection, full ROM, swelling Neurovascular tendon exam: Present: no vascular compromise Gait: observed and normal Back exam: Present: normal inspection Neurological exam: Present: alert, oriented X3, CN II-XII intact Psychiatric exam: Present: normal affect, normal mood Skin exam: Present: warm, dry, intact, normal color. Absent: rash Course Vital Signs 11/10/18 15:55 Temperature 98.4 F Pulse Rate 90 Respiratory 18 Rate Blood Pressure 118/77 O2 Sat by Pulse 98 Oximetry Procedures - Orthopedic Splinting/Casting Injury #1 Side: left Lower Extremity Injury Location: ankle Lower Extremity Immobilizer: AirCast, Emre wrap Medical Decision Making - Medical Decision Making 53 year old female with complaints of L ankle and tib fib pain after slip and fall. She has full range of motion of foot and ankel. Patient complinas of pain in lwer leg near pervious surgical site. she ahs no bruising and minimal swelling noted. Patient tib fib jus is negative for acute process. Discussed ankle sprain and patient placed in air cast. Discussed ortho follow up and return parameters dicsussed. - Radiology Data Radiology results: report reviewed Normal Tib fib xray, no fracture or dislocation. Evidence of previous surgeries noted with intact plate and screw. Disposition Clinical Impression: Left ankle sprain Disposition: HOME SELF-CARE Condition: Good Instructions (If sedation given, give patient instructions): Ankle Sprain (ED) Additional Instructions: Patient advised to follow-up with PCP. Return to emergency department if any alarming signs or symptoms occur. Follow-up with child protective services specialist. Rest, ice, and elevate extremity. Is patient prescribed a controlled substance at d/c from ED?: No Referrals: Yung Otto MD [Primary Care Provider] - 1-2 days Don Bethea MD [STAFF PHYSICIAN] - 1-2 days Time of Disposition: 17:18
--- NOTE | 2018-11-10 16:52 | XR ---
PROCEDURE: XR tibia fibula LT - 2V DATE AND TIME: 11/10/2018 4:32 PM CLINICAL INDICATION: Pain after fall TECHNIQUE: AP and lateral views from the knee to the ankle COMPARISON: None FINDINGS: The ankle orthopedic hardware is intact, without periprosthesis lucency. There is no fracture or malalignment. The soft tissues are unremarkable. IMPRESSION: NO ACUTE PROCESS.
== END 2018-11-10 17:27 | disposition home or self-care (01) ==
LOC: EC 15:49
DX: S93.402A Sprain of unspecified ligament of left ankle, initial encounter (principal); E11.9 Type 2 diabetes mellitus without complications; F32.9 Major depressive disorder, single episode, unspecified; F41.9 Anxiety disorder, unspecified; F17.200 Nicotine dependence, unspecified, uncomplicated; Z79.899 Other long term (current) drug therapy; Z91.040 Latex allergy status; W19.XXXA Unspecified fall, initial encounter; Y92.89 Other specified places as the place of occurrence of the external cause
CPT/HCPCS: 99284

== ENCOUNTER 2021-05-23 13:04 | Inpatient (IN) | payer OTHER ==
[2021-05-23] MEDS: SODIUM CHLORIDE 0.9% 1,000 ML IV STA ×2 (13:32→18:47)
--- NOTE | 2021-05-23 13:35 | ED ---
Abdominal Pain HPI - General Chief Complaint: Abdominal Pain Stated Complaint: Pancreatitis Time Seen by Provider: 05/23/21 13:04 Source: patient, RN/MD, EMS, RN notes reviewed Mode of arrival: EMS - History of Present Illness Initial Comments: This is a 56-year-old female history of alcoholism and chronic pancreatitis who presented to [facility] in [place], [place] with complaints of 2 days of abdominal pain with nausea vomiting decreased oral intake she states the abdominal pain is upper abdominal typical of her pancreatitis. At that facility she was found be hypomagnesemic as well as hypokalemic additionally she did have a CAT scan performed which showed some evidence of pneumobilia with concern for early age and cholangitis. Patient was transferred here for further inpatient evaluation and treatment. Patient complains of still feels somewhat nauseated and has abdominal pain. MD Complaint: abdominal pain - Related Data Home Medications Medication Instructions Recorded Confirmed Gabapentin 800 mg PO TID 10/08/17 11/10/18 Insulin Glargine,Hum.rec.anlog 25 unit SQ HS 10/08/17 11/10/18 [Lantus Solostar Pen] Morphine Sulfate 15 mg PO Q4H PRN 10/08/17 11/10/18 Ondansetron HCl [Zofran] 4 mg PO Q4H PRN 10/08/17 11/10/18 INSULIN LISPRO (humaLOG) [humaLOG] 0 units SQ TID PRN 06/05/18 11/10/18 PARoxetine HCL [Paxil] 40 mg PO DAILY 10/20/18 11/10/18 Allergies Allergy/AdvReac Type Severity Reaction Status Date / Time acetaminophen [From Tylenol] Allergy Unknown Verified 05/23/21 13:10 latex Allergy Swelling/hi Verified 05/23/21 13:10 ves ondansetron [From Zofran] Allergy Unknown Verified 05/23/21 13:10 Review of Systems ROS Statement: Those systems with pertinent positive or pertinent negative responses have been documented in the HPI. ROS Other: All systems not noted in ROS Statement are negative. Past Medical History Past Medical History: Diabetes Mellitus, GERD/Reflux, Pulmonary Embolus (PE) Additional Past Medical History / Comment(s): hx colitis and diverticulitis, hx migraines, insomnia, IBS, hx pancreatitis, ostemyelitis, hx back injury- has crushed disks, wound rt foot-rt side and little toe, hiatal hernia, ETOH history History of Any Multi-Drug Resistant Organisms: None Reported Past Surgical History: Appendectomy, Cholecystectomy, Orthopedic Surgery Additional Past Surgical History / Comment(s): benign tumor removed from right shoulder , "stone removed from pancreas", ORIF left ankle, Past Anesthesia/Blood Transfusion Reactions: No Reported Reaction Past Psychological History: Anxiety, Depression Smoking Status: Current every day smoker Past Alcohol Use History: None Reported Past Drug Use History: None Reported - Past Family History Mother Family Medical History: Congestive Heart Failure (CHF) Additional Family Medical History / Comment(s): . Father Family Medical History: No Reported History General Exam - General Exam Comments Initial Comments: This is a well-developed sec female who is awake alert oriented 3 General appearance: alert, anxious, in distress Head exam: Present: atraumatic, normocephalic, normal inspection Eye exam: Present: normal appearance, PERRL, EOMI. Absent: scleral icterus, conjunctival injection, periorbital swelling ENT exam: Present: mucous membranes dry Neck exam: Present: normal inspection. Absent: tenderness, meningismus, lymphadenopathy Respiratory exam: Present: normal lung sounds bilaterally. Absent: respiratory distress, wheezes, rales, rhonchi, stridor Cardiovascular Exam: Present: regular rate, normal rhythm, normal heart sounds. Absent: systolic murmur, diastolic murmur, rubs, gallop, clicks GI/Abdominal exam: Present: soft, tenderness (Gastric tenderness no guarding or rebound at this time), normal bowel sounds. Absent: distended, guarding, rebound, rigid Rectal exam: Present: deferred Extremities exam: Present: normal inspection, full ROM, normal capillary refill. Absent: tenderness, pedal edema, joint swelling, calf tenderness Back exam: Present: normal inspection Neurological exam: Present: alert, oriented X3, CN II-XII intact Psychiatric exam: Present: normal affect, normal mood Skin exam: Present: warm, dry, intact, normal color. Absent: rash Course Vital Signs 05/23/21 13:11 Temperature 98.1 F Pulse Rate 92 Respiratory 18 Rate Blood Pressure 117/78 O2 Sat by Pulse 95 Oximetry - Reevaluation(s) Reevaluation #1: 05/23/21 13:34 LAD lactic acid is likely secondary to viral depletion Medical Decision Making - Medical Decision Making I did review the materials presented from the sending facility I did discuss case with Dr. Lalito Moreno. Patient be admitted with GI consultation. Patient will be continued on IV Zosyn and pain control as well as antinausea medication and fluids. Disposition Clinical Impression: Abdominal pain, Pneumobilia, Dehydration, Lactic acidosis, Hypokalemia, Hypomagnesemia, Chronic pancreatitis Disposition: ADMITTED IP TO THIS HOSP Condition: Fair Referrals: None,Stated [REFERRING] - 1-2 days
[2021-05-23] MEDS ORDERED: HYDROmorphone 1 MG/ML 1 ML SYRINGE IVP PRN (13:37)
[2021-05-23] MEDS ORDERED: NALOXONE 0.4 MG/ML 1 ML VIAL IV PRN (13:37)
[2021-05-23] MEDS ORDERED: METOCLOPRAMIDE 5 MG/ML 2 ML VIAL IVP STA (13:39)
[2021-05-23 14:08] LABS: ALT 13 U/L (4-34); AST 25 U/L (14-36); African American GFR (CKD) >90 (>60 ml/min/1.73 sqM); Albumin 2.8 g/dL (3.5-5.0); Alkaline Phosphatase 68 U/L (38-126); Anion Gap 6 mmol/L; Blood Urea Nitrogen 13 mg/dL (7-17); Calcium 8.1 mg/dL (8.4-10.2); Carbon Dioxide 25 mmol/L (22-30); Chloride 103 mmol/L (98-107); Glucose 357 mg/dL (74-99); Lipase 27 U/L (23-300); Magnesium 2.2 mg/dL (1.6-2.3); Non-African American GFR(CKD) >90 (>60 ml/min/1.73 sqM); Potassium 2.9 mmol/L (3.5-5.1); Sodium 134 mmol/L (137-145); Total Bilirubin 0.6 mg/dL (0.2-1.3); Total Protein 5.4 g/dL (6.3-8.2)
[2021-05-23] MEDS ORDERED: POTASSIUM CHLORIDE 20 MEQ in WATER FOR INJECTION 1 100ML.BAG IVPB STA (15:01)
[2021-05-23] MEDS: INSULIN ASPART (NovoLOG) 100 UNIT/ML VIAL SQ SCH ×3 (15:20→20:19)
[2021-05-23 15:25] LABS: Glucose,Whole Blood 331 mg/dL (75-99)
[2021-05-23] MEDS ORDERED: PIPERACILLIN-TAZOBACTAM 3.375 GM in SODIUM CHLORIDE 0.9% 100 ML IVPB ONE (16:00)
[2021-05-23] MEDS ORDERED: MORPHINE SULFATE IR 15 MG TABLET PO PRN (16:02)
--- NOTE | 2021-05-23 16:26 | P.HPIM ---
History of Present Illness H&P Date: 05/23/21 This is a 56-year-old female with past medical history significant for chronic pancreatitis and presented to an outside emergency room with severe abdominal pain, nausea, and vomiting. Patient said that her pain started yesterday and she describes it as generalized pain all over her abdomen. She rates her pain as 10 out of 10 in severity. Patient said that she vomited multiple times and ended up an outside emergency room where a computed tomography scan of the abdomen and pelvis was reported positive for pneumobilia. Computed tomography scan report is not available for me to review. Patient will be admitted to the hospital for further evaluation Review of Systems Review of system: 14 points review of systems were obtained and were negative except to what were mentioned in the HPI. Past Medical History Past Medical History: Diabetes Mellitus, GERD/Reflux, Pulmonary Embolus (PE) Additional Past Medical History / Comment(s): hx colitis and diverticulitis, hx migraines, insomnia, IBS, hx pancreatitis, ostemyelitis, hx back injury- has crushed disks, wound rt foot-rt side and little toe, hiatal hernia, ETOH history History of Any Multi-Drug Resistant Organisms: None Reported Past Surgical History: Appendectomy, Cholecystectomy, Orthopedic Surgery Additional Past Surgical History / Comment(s): benign tumor removed from right shoulder , "stone removed from pancreas", ORIF left ankle, Past Anesthesia/Blood Transfusion Reactions: No Reported Reaction Past Psychological History: Anxiety, Depression Additional Psychological History / Comment(s): "a lot" Smoking Status: Current every day smoker Past Alcohol Use History: None Reported Additional Past Alcohol Use History / Comment(s): Patient smokes about 1.5 packs a day, has smoked for 29 yrs Past Drug Use History: None Reported Additional Drug Use History / Comment(s): denies - Past Family History Mother Family Medical History: Congestive Heart Failure (CHF) Additional Family Medical History / Comment(s): . Father Family Medical History: No Reported History Medications and Allergies Home Medications Medication Instructions Recorded Confirmed Type Gabapentin 800 mg PO TID 10/08/17 05/23/21 History Morphine Sulfate 15 mg PO Q4H PRN 10/08/17 05/23/21 History INSULIN LISPRO (humaLOG) [humaLOG] See Protocol SQ AC-TID 06/05/18 05/23/21 History Insulin Glargine [Lantus Vial] 15 unit SQ HS 05/23/21 05/23/21 History Promethazine [Phenergan] 25 mg PO Q6HR PRN 05/23/21 05/23/21 History hydrOXYzine pamoate [hydrOXYzine 25 mg PO QID 05/23/21 05/23/21 History PAMOATE] Allergies Allergy/AdvReac Type Severity Reaction Status Date / Time latex Allergy Swelling/hi Verified 05/23/21 13:36 ves acetaminophen [From Tylenol] AdvReac "does not Verified 05/23/21 13:36 like" ondansetron [From Zofran] AdvReac headache Verified 05/23/21 13:36 Physical Exam Vitals: Vital Signs Temp Pulse Pulse Resp BP BP Pulse Ox 05/23/21 16:05 98.1 F 91 18 116/72 97 05/23/21 15:02 98.9 F 89 18 106/69 95 05/23/21 13:11 98.1 F 92 18 117/78 95 Intake and Output 05/23/21 05/23/21 05/23/21 06:59 14:59 22:59 Other: Weight 63.503 kg 62.142 kg General: The patient is awake and alert, in no distress Eye: there is normal conjunctiva bilaterally. Neck: The neck is supple, there is no JVD. Cardiovascular: Normal S1-S2, no S3-S4, no murmurs. Respiratory: Lungs clear to auscultation bilaterally Gastrointestinal: Abdomen is soft, there is moderate tenderness to palpation throughout the abdomen Musculoskeletal: There is no pedal edema. Neurological:. Speech is normal. Skin: Skin is warm and dry Results CBC & Chem 7: 05/23/21 13:37 Labs: Abnormal Lab Results - Last 24 Hours (Table) 05/23/21 05/23/21 Range/Units 13:37 15:14 Sodium 134 L (137-145) mmol/L Potassium 2.9 L (3.5-5.1) mmol/L Creatinine 0.50 L (0.52-1.04) mg/dL Glucose 357 H (74-99) mg/dL POC Glucose (mg/dL) 331 H (75-99) mg/dL Calcium 8.1 L (8.4-10.2) mg/dL Total Protein 5.4 L (6.3-8.2) g/dL Albumin 2.8 L (3.5-5.0) g/dL Thrombosis Risk Factor Assmnt - Choose All That Apply Any of the Below Risk Factors Present?: No Assessment and Plan Assessment: 1. Pneumobilia with suspected cholangitis 2. Severe abdominal pain 3. Chronic pain syndrome maintained on high-dose morphine at home 4. Chronic pancreatitis 5. 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 Continue broad- spectrum antibiotic with IV Zosyn. Aggressive IV fluid hydration. Dilaudid liquid diet. Awaiting GI evaluation. Request copy of computed tomography scan report from outside hospital. Pain control as needed. DVT prophylaxis with subcu Lovenox
[2021-05-23 16:27] LABS: Glucose,Whole Blood 283 mg/dL (75-99)
[2021-05-23] MEDS: hydrOXYzine pamoate 25 MG CAP PO SCH ×2 (17:07→20:23)
[2021-05-23] MEDS: HYDROmorphone 1 MG/ML 1 ML SYRINGE IVP PRN ×3 (17:27→23:23)
[2021-05-23 20:03] LABS: Glucose,Whole Blood 54 mg/dL (75-99)
[2021-05-23] MEDS: INSULIN DETEMIR (LEVEMIR) 100 UNIT/ML SYR SQ SCH (20:20)
[2021-05-23 20:21] LABS: Glucose,Whole Blood 75 mg/dL (75-99)
[2021-05-23] MEDS: GABAPENTIN 400 MG CAP PO SCH (20:23)
[2021-05-23] MEDS: PIPERACILLIN-TAZOBACTAM 3.375 GM in SODIUM CHLORIDE 0.9% 100 ML IVPB SCH (23:23)
[2021-05-24] MEDS: HYDROmorphone 1 MG/ML 1 ML SYRINGE IVP PRN ×7 (02:05→23:57)
[2021-05-24] MEDS ORDERED: METOCLOPRAMIDE 5 MG/ML 2 ML VIAL IVP PRN (03:26)
[2021-05-24 07:02] LABS: Glucose,Whole Blood 140 mg/dL (75-99)
[2021-05-24] MEDS: hydrOXYzine pamoate 25 MG CAP PO SCH ×4 (07:34→21:17)
[2021-05-24] MEDS: GABAPENTIN 400 MG CAP PO SCH ×3 (07:34→21:17)
[2021-05-24] MEDS: ENOXAPARIN 40 MG/0.4 ML SYRINGE SQ SCH (07:35)
[2021-05-24] MEDS: PIPERACILLIN-TAZOBACTAM 3.375 GM in SODIUM CHLORIDE 0.9% 100 ML IVPB SCH ×3 (07:35→23:58)
[2021-05-24] MEDS: INSULIN ASPART (NovoLOG) 100 UNIT/ML VIAL SQ SCH ×4 (07:36→21:12)
[2021-05-24 09:35] LABS: Basophils # (A) 0.04 X 10*3/uL (0.00-0.10); Basophils % (A) 0.7 %; Eosinophils # (A) 0.09 X 10*3/uL (0.04-0.35); Eosinophils % (A) 1.6 %; HCT 34.5 % (37.2-46.3); HGB 10.8 g/dL (12.0-15.0); Lymphocytes % (A) 45.7 %; MCH 27.1 pg (27.0-32.0); MCHC 31.3 g/dL (32.0-37.0); MCV 86.7 fL (80.0-97.0); Mean Platelet Volume 9.7 fL (9.5-12.2); Monocytes # (A) 0.29 X 10*3/uL (0.20-1.00); Monocytes % (A) 5.1 %; Neutrophils # (A) 2.66 X 10*3/uL (1.80-7.70); Neutrophils % (A) 46.7 %; Platelet Count 185 X 10*3/uL (140-440); RBC 3.98 X 10*6/uL (4.10-5.20); RDW 12.9 % (11.5-14.5); WBC 5.69 X 10*3/uL (4.50-10.00)
[2021-05-24] MEDS: PANTOPRAZOLE 40 MG TABLET PO SCH ×2 (10:33→17:36)
[2021-05-24 10:44] LABS: African American GFR (CKD) 111.5 (60.0-200.0); Albumin 3.2 g/dL (3.80-4.90); Albumin/Globulin Ratio 1.78 (1.60-3.17); Anion Gap 4.2 mmol/L (4.00-12.00); BUN/Creat Ratio 18.57 Ratio (12.00-20.00); Calcium 7.9 mg/dL (8.7-10.3); Carbon Dioxide 28.8 mmol/L (21.6-31.8); Globulin 1.8 g/dL (1.6-3.3); Non-African American GFR(CKD) 96.2 (60.0-200.0); Potassium 3.6 mmol/L (3.5-5.5); Total Bilirubin 0.4 mg/dL (0.3-1.2)
[2021-05-24 11:17] LABS: Glucose,Whole Blood 191 mg/dL (75-99)
--- NOTE | 2021-05-24 13:50 | P.CONS ---
History of Present Illness - Reason for Consult Consult date: 05/24/21 Pneumobilia Requesting physician: Terrance Wallis - Chief Complaint Abdominal pain - History of Present Illness [id number] white female who was transferred from [facility] with complaints of severe abdominal pain. Patient has a past medical history including diabetes mellitus, GERD, pulmonary embolism with a history of colitis and diverticulitis, IBS, chronic alcoholic pancreatitis, and previous alcohol abuse. Patient had a CT of the abdomen and pelvis that showed increase moderate inflammation of gastric pylorus. Chronic pancreatitis with calcification. Biliary ductal dilation remains with new pneumobilia, correlate with instrumentation/ERCP. Nutcracker phenomenon and aorta SMA, lower lung reticular possible scarring, correlate for atypical infection. Gastroenterology was consulted for possible pneumobilia. The patient states the abdominal pain began 2 days prior in her lower abdomen which she rated as a 10 on a 10 that lasted for only a few minutes but then improved some with spreading to generalized abdominal pain. She did have associated nausea and vomiting and stated that she vomited up to 6 times that day. She presented to the emergency department and a [facility] for further evaluation. Admission she was not noted to have any leukocytosis or elevation in her LFTs. The patient states her last episode of pancreatitis was 3-4 years ago, states she was on Creon however ran out of medications. 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 She does have a history of chronic abdominal pain and chronic loose stools. She had an EGD and colonoscopy on 10/10/[address] Bonilla. EGD showed findings of mild antral gastritis and a small hiatal hernia. Colonoscopy was significant for for polypectomy. Patient also states she does have a history of acid reflux but does not take any medications currently. She did have some mild nausea this morning, pain is improved and only localized to the right lower quadrant. She denies any vomiting or diarrhea. States last bowel movement was 2 days ago. She's been afebrile. Repeat labs today WBC 5.6 times hemoglobin 10.8 hematocrit 34 platelet count 185,000 total bilirubin 0.4 AST 15 and T12 alkaline phosphatase 61. Review of Systems REVIEW OF SYSTEMS: CARDIOPULMONARY: No chest pain or shortness of breath. Gastrointestinal: Severe lower abdominal pain with diffuse abdominal pain now improved and localized to the right lower quadrant. She did have nausea with vomiting 6 episodes 1-2 days ago. No hematemesis, coffee-ground emesis. No rectal bleeding, or melena. GENITOURINARY: No dysuria or hematuria. MUSCULOSKELETAL: Reports normal range of motion., Joint pain. SKIN: No rashes. No jaundice. ENDOCRINE: No chills, fevers. No excessive weight gain or loss. No polydipsia or polyuria. PSYCHIATRIC: Unremarkable. NEUROLOGY: No change in mental status. Denies dizziness, headache. ENT: Vision unremarkable. CONSTITUTIONAL: No recent weight loss. No fever, chills, night sweats. Past Medical History Past Medical History: Diabetes Mellitus, GERD/Reflux, Pulmonary Embolus (PE) Additional Past Medical History / Comment(s): hx colitis and diverticulitis, hx migraines, insomnia, IBS, hx pancreatitis, ostemyelitis, hx back injury- has crushed disks, wound rt foot-rt side and little toe, hiatal hernia, ETOH history History of Any Multi-Drug Resistant Organisms: None Reported Past Surgical History: Appendectomy, Cholecystectomy, Orthopedic Surgery Additional Past Surgical History / Comment(s): benign tumor removed from right shoulder , "stone removed from pancreas", ORIF left ankle, Past Anesthesia/Blood Transfusion Reactions: No Reported Reaction Past Psychological History: Anxiety, Depression Additional Psychological History / Comment(s): "a lot" Smoking Status: Current every day smoker Past Alcohol Use History: None Reported Additional Past Alcohol Use History / Comment(s): Patient smokes about 1.5 packs a day, has smoked for 29 yrs Past Drug Use History: None Reported Additional Drug Use History / Comment(s): denies - Past Family History Mother Family Medical History: Congestive Heart Failure (CHF) Additional Family Medical History / Comment(s): . Father Family Medical History: No Reported History Medications and Allergies Home Medications Medication Instructions Recorded Confirmed Type Gabapentin 800 mg PO TID 10/08/17 05/23/21 History Morphine Sulfate 15 mg PO Q4H PRN 10/08/17 05/23/21 History INSULIN LISPRO (humaLOG) [humaLOG] See Protocol SQ AC-TID 06/05/18 05/23/21 History Insulin Glargine [Lantus Vial] 15 unit SQ HS 05/23/21 05/23/21 History Promethazine [Phenergan] 25 mg PO Q6HR PRN 05/23/21 05/23/21 History hydrOXYzine pamoate [hydrOXYzine 25 mg PO QID 05/23/21 05/23/21 History PAMOATE] Allergies Allergy/AdvReac Type Severity Reaction Status Date / Time latex Allergy Swelling/hi Verified 05/23/21 13:36 ves acetaminophen [From Tylenol] AdvReac "does not Verified 05/23/21 13:36 like" ondansetron [From Zofran] AdvReac headache Verified 05/23/21 13:36 Physical Exam Vitals: Vital Signs Temp Pulse Pulse Resp BP BP Pulse Ox 05/24/21 07:20 98.2 F 76 17 102/65 94 L 05/24/21 01:40 98.2 F 74 14 99/62 96 05/23/21 20:00 89 15 05/23/21 18:56 97.7 F 89 15 95/56 97 05/23/21 16:05 98.1 F 91 18 116/72 97 05/23/21 15:02 98.9 F 89 18 106/69 95 05/23/21 13:11 98.1 F 92 18 117/78 95 Intake and Output 05/23/21 05/24/21 05/24/21 22:59 06:59 14:59 Intake Total 50 310 Balance 50 310 Intake: Intake, IV Titration 310 Amount Sodium Chloride 0.9% 1, 310 000 ml @ 130 mls/hr IV . Q7H42M STA Rx#:[id number] Oral 50 Other: Voiding Method Toilet Weight 62.142 kg General appearance: The patient is alert, oriented, appears in no acute distress. HET: Head is normocephalic and atraumatic. Conjunctiva pink. Sclera anicteric. Neck: Supple without lymphadenopathy. Trachea midline. Heart: S1 S2. Regular rate and rhythm. Lungs: Clear to auscultation. Abdomen: Soft, right lower quadrant tenderness, nondistended with bowel sounds. No guarding or rigidity. Skin: No rashes. No jaundice. Extremities: Normal skin color and turgor. No pedal edema. Neurological: No focal deficits. Alert and oriented 3.. Results CBC & Chem 7: 05/24/21 05:11 05/24/21 05:11 Labs: Abnormal Lab Results - Last 24 Hours (Table) 05/23/21 05/23/21 05/23/21 Range/Units 13:37 15:14 16:22 Sodium 134 L (137-145) mmol/L Potassium 2.9 L (3.5-5.1) mmol/L Creatinine 0.50 L (0.52-1.04) mg/dL Glucose 357 H (74-99) mg/dL POC Glucose (mg/dL) 331 H 283 H (75-99) mg/dL Calcium 8.1 L (8.4-10.2) mg/dL Total Protein 5.4 L (6.3-8.2) g/dL Albumin 2.8 L (3.5-5.0) g/dL 05/23/21 05/24/21 Range/Units 20:01 06:59 Sodium (137-145) mmol/L Potassium (3.5-5.1) mmol/L Creatinine (0.52-1.04) mg/dL Glucose (74-99) mg/dL POC Glucose (mg/dL) 54 L 140 H (75-99) mg/dL Calcium (8.4-10.2) mg/dL Total Protein (6.3-8.2) g/dL Albumin (3.5-5.0) g/dL Assessment and Plan (1) Abdominal pain Narrative/Plan: D6-year-old female transferred from [facility] [place] for abdominal pain. Patient had a CT of the abdomen and pelvis performed at outside facility that showed an increased moderate inflammation of gastric pylorus. Chronic pancreatitis with calcification. Biliary ductal dilation remains with new pneumobilia, correlate with instrumentation/ERCP. Patient has not had a recent ERCP. She does state that the pain has improved. She stated that started abruptly in the lower abdomen which she rated a 10 out of 10 that only lasted for a few minutes but then had some diffuse abdominal discomfort followed by nausea and vomiting. She does have a history of Colace cystectomy about 8 years ago for an infected gallbladder. She has a history of chronic alcoholic pancreatitis and states her last episode was 3-4 years ago. She states she has not had any alcohol in the last 8 years. 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 On presentation to [facility] [place] she had no elevation of her LFTs, lipase was within normal limits at 62. Repeat labs today showed mild leukocytosis, total bilirubin 0.4 AST 15 and ALT12 alkaline phosphatase 61. Labs are inconsistent with a biliary obstruction, further evaluation needed possible etiology of pneumobilia. Will order MRCP of the liver. Current Visit: Yes Status: Acute Code(s): R10.9 - UNSPECIFIED ABDOMINAL PAIN SNOMED Code(s): 61774777 (2) Chronic pancreatitis Current Visit: Yes Status: Acute Code(s): K86.1 - OTHER CHRONIC PANCREATITIS SNOMED Code(s): 167322215 (3) Pneumobilia Current Visit: Yes Status: Acute Code(s): K83.8 - OTHER SPECIFIED DISEASES OF BILIARY TRACT SNOMED Code(s): 096879132 Plan: 1. Continue symptomatic and supportive care 2. MRCP ordered 3. Diet as tolerated 4. Antiemetics as needed 5. Further recommendations forthcoming Thank you for this consultation, we will continue to follow. Dr. Riya Bonilla I agree with the dictator's note, documented as a scribe by Josette Shen.
--- NOTE | 2021-05-24 14:05 | P.PN ---
Subjective Progress Note Date: 05/24/21 Patient is doing fairly well today. She appeared comfortable when I saw her. She reported that her pain is unchanged compared to yesterday. Most of the pain is in the right upper quadrant. Objective - Vital Signs Vital signs: Vital Signs Temp 98.2 F 05/24/21 07:20 Pulse 76 05/24/21 07:20 Resp 17 05/24/21 07:20 BP 102/65 05/24/21 07:20 Pulse Ox 94 L 05/24/21 07:20 Intake & Output 05/23/21 05/24/21 05/24/21 18:59 06:59 18:59 Intake Total 50 310 Balance 50 310 Weight 62.142 kg Intake: Intake, IV Titration 310 Amount Sodium Chloride 0.9% 1, 310 000 ml @ 130 mls/hr IV . Q7H42M STA Rx#:[id number] Oral 50 Other: Voiding Method Toilet - Exam General: The patient is awake and alert, in no distress Eye: there is normal conjunctiva bilaterally. Neck: The neck is supple, there is no JVD. Cardiovascular: Normal S1-S2, no S3-S4, no murmurs. Respiratory: Lungs clear to auscultation bilaterally Gastrointestinal: Abdomen is soft, nontender Musculoskeletal: There is no pedal edema. Neurological:. Speech is normal. Skin: Skin is warm and dry - Labs CBC & Chem 7: 05/24/21 05:11 05/24/21 05:11 Labs: Abnormal Lab Results - Last 24 Hours (Table) 05/23/21 05/23/21 05/23/21 Range/Units 13:37 15:14 16:22 RBC (4.10-5.20) X 10*6/uL Hgb (12.0-15.0) g/dL Hct (37.2-46.3) % MCHC (32.0-37.0) g/dL Sodium 134 L (137-145) mmol/L Potassium 2.9 L (3.5-5.1) mmol/L Creatinine 0.50 L (0.52-1.04) mg/dL Glucose 357 H (74-99) mg/dL POC Glucose (mg/dL) 331 H 283 H (75-99) mg/dL Calcium 8.1 L (8.4-10.2) mg/dL Total Protein 5.4 L (6.3-8.2) g/dL Albumin 2.8 L (3.5-5.0) g/dL 05/23/21 05/24/21 05/24/21 Range/Units 20:01 05:11 05:11 RBC 3.98 L (4.10-5.20) X 10*6/uL Hgb 10.8 L (12.0-15.0) g/dL Hct 34.5 L (37.2-46.3) % MCHC 31.3 L (32.0-37.0) g/dL Sodium (137-145) mmol/L Potassium (3.5-5.1) mmol/L Creatinine (0.52-1.04) mg/dL Glucose 161 H (74-99) mg/dL POC Glucose (mg/dL) 54 L (75-99) mg/dL Calcium 7.9 L (8.4-10.2) mg/dL Total Protein 5.0 L (6.3-8.2) g/dL Albumin 3.20 L (3.5-5.0) g/dL 05/24/21 05/24/21 Range/Units 06:59 11:15 RBC (4.10-5.20) X 10*6/uL Hgb (12.0-15.0) g/dL Hct (37.2-46.3) % MCHC (32.0-37.0) g/dL Sodium (137-145) mmol/L Potassium (3.5-5.1) mmol/L Creatinine (0.52-1.04) mg/dL Glucose (74-99) mg/dL POC Glucose (mg/dL) 140 H 191 H (75-99) mg/dL Calcium (8.4-10.2) mg/dL Total Protein (6.3-8.2) g/dL Albumin (3.5-5.0) g/dL Assessment and Plan Assessment: 1. Pneumobilia with suspected cholangitis 2. Severe abdominal pain 3. Chronic pain syndrome maintained on high-dose morphine at home 4. Chronic pancreatitis 5. 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 Continue broad- spectrum antibiotic with IV Zosyn. Patient was seen and evaluated by GI. MRCP ordered for further evaluation. Pain control as needed. DVT prophylaxis with subcu Lovenox
[2021-05-24 16:33] LABS: Glucose,Whole Blood 156 mg/dL (75-99)
[2021-05-24 17:31] LABS: Glucose,Whole Blood 139 mg/dL (75-99)
[2021-05-24 20:37] LABS: Glucose,Whole Blood 259 mg/dL (75-99)
[2021-05-24] MEDS: INSULIN DETEMIR (LEVEMIR) 100 UNIT/ML SYR SQ SCH (21:12)
[2021-05-25] MEDS: HYDROmorphone 1 MG/ML 1 ML SYRINGE IVP PRN ×2 (02:50→06:28)
[2021-05-25 07:03] LABS: Glucose,Whole Blood 241 mg/dL (75-99)
[2021-05-25 07:36] VITALS: RESP 16
[2021-05-25] MEDS: INSULIN ASPART (NovoLOG) 100 UNIT/ML VIAL SQ SCH ×4 (08:53→20:58)
[2021-05-25] MEDS: hydrOXYzine pamoate 25 MG CAP PO SCH ×4 (09:30→20:57)
[2021-05-25] MEDS: HYDROmorphone 0.5 MG/0.5 ML SYRINGE IVP PRN ×4 (09:30→20:56)
[2021-05-25] MEDS: GABAPENTIN 400 MG CAP PO SCH ×3 (09:30→20:57)
[2021-05-25] MEDS: PIPERACILLIN-TAZOBACTAM 3.375 GM in SODIUM CHLORIDE 0.9% 100 ML IVPB SCH ×2 (09:31→15:54)
[2021-05-25] MEDS: ENOXAPARIN 40 MG/0.4 ML SYRINGE SQ SCH (09:31)
[2021-05-25] MEDS: PANTOPRAZOLE 40 MG TABLET PO SCH ×2 (09:31→16:52)
--- NOTE | 2021-05-25 11:27 | P.PN ---
Subjective Progress Note Date: 05/25/21 Principal diagnosis: Abdominal pain, pneumobilia 56-year-old white female who was transferred from [facility] with complaints of severe abdominal pain. Patient has a past medical history including diabetes mellitus, GERD, pulmonary embolism with a history of colitis and diverticulitis, IBS, chronic alcoholic pancreatitis, and previous alcohol abuse. Patient had a CT of the abdomen and pelvis that showed increase moderate inflammation of gastric pylorus. Chronic pancreatitis with calcification. Biliary ductal dilation remains with new pneumobilia, correlate with in strumentation/ERCP. Nutcracker phenomenon and aorta SMA, lower lung reticular possible scarring, correlate for atypical infection. Gastroenterology was consulted for possible pneumobilia. The patient states the abdominal pain began 2 days prior in her lower abdomen which she rated as a 10 on a 10 that lasted for only a few minutes but then improved some with spreading to generalized abdominal pain. She did have associated nausea and vomiting and stated that she vomited up to 6 times that day. She presented to the emergency department and a [facility] for further evaluation. Admission she was not noted to have any leukocytosis or elevation in her LFTs. The patient states her last episode of pancreatitis was 3-4 years ago, states she was on Creon however ran out of medications. She has not follow-up with training technician. She does have a history of chronic abdominal pain and chronic loose stools. She had an EGD and colonoscopy on 10/10/[address] Bonilla. EGD showed findings of mild antral gastritis and a small hiatal hernia. Colonoscopy was significant for for polypectomy. Yearly the patient does state that she had an ERCP 70 years ago for gallstone pancreatitis. Today she is seen and evaluated at the bedside. States that her pain has increased through the night, she states it is in the lower abdomen greatest in the right lower quadrant. She states she's had some mild nausea but no vomiting. She is scheduled for an MRCP this afternoon at 1:30. She is also complaining of feeling constipated, has not had a bowel movement in 3 days. Objective - Vital Signs Vital signs: Vital Signs Temp 97.4 F L 05/25/21 07:35 Pulse 64 05/25/21 07:35 Resp 16 05/25/21 07:35 BP 151/90 05/25/21 07:35 Pulse Ox 100 05/25/21 07:35 Intake & Output 05/24/21 05/25/21 05/25/21 18:59 06:59 18:59 Intake Total 600 Balance 600 Weight 62 kg Intake: Oral 600 Other: Voiding Method Toilet # Voids 4 1 - Exam General appearance: The patient is alert, oriented, appears in no acute distress. HET: Head is normocephalic and atraumatic. Conjunctiva pink. Sclera anicteric. Neck: Supple without lymphadenopathy. Abdomen: Soft, lower abdominal tenderness, greatest in right lower quadrant, nondistended with bowel sounds. No guarding or rigidity. Extremities: Normal skin color and turgor. No pedal edema Skin: No rashes, no jaundice Neurological: No focal deficits. Alert and oriented 3. - Labs CBC & Chem 7: 05/24/21 05:11 05/24/21 05:11 Labs: Abnormal Lab Results - Last 24 Hours (Table) 05/24/21 05/24/21 05/24/21 Range/Units 11:15 16:31 17:19 POC Glucose (mg/dL) 191 H 156 H 139 H (75-99) mg/dL 05/24/21 05/25/21 Range/Units 20:36 06:54 POC Glucose (mg/dL) 259 H 241 H (75-99) mg/dL Assessment and Plan (1) Abdominal pain Narrative/Plan: 56-year-old female transferred from [facility] for abdominal pain. Patient had a CT of the abdomen and pelvis performed at outside facility that showed an increased moderate inflammation of gastric pylorus. Chronic pancreatitis with calcification. Biliary ductal dilation remains with new pneumobilia, correlate with instrumentation/ERCP. Patient has not had a recent ERCP. She does state that the pain has improved. She stated that started abruptly in the lower abd omen which she rated a 10 out of 10 that only lasted for a few minutes but then had some diffuse abdominal discomfort followed by nausea and vomiting. She does have a history of Colace cystectomy about 8 years ago for an infected gallbladder. She has a history of chronic alcoholic pancreatitis and states her last episode was 3-4 years ago. She states she has not had any alcohol in the last 8 years. She has not follow-up with a training technician. On presentation to [facility] she had no elevation of her LFTs, lipase was within normal limits at 62. Repeat labs today showed mild leukocytosis, total bilirubin 0.4 AST 15 and ALT12 alkaline phosphatase 61. Labs are inconsistent with a biliary obstruction, further evaluation needed possible etiology of pneumobilia. Will order MRCP of the liver. MRCP completed and reviewed. No biliary ductal dilation. Chronic pancreatitis, pneumobilia was seen on CT in 2018. Patient has been complaining of constipation. Abdominal pain may be related to constipation. Will start MiraLAX daily. Current Visit: Yes Status: Acute Code(s): R10.9 - UNSPECIFIED ABDOMINAL PAIN SNOMED Code(s): 36818368 (2) Chronic pancreatitis Current Visit: Yes Status: Acute Code(s): K86.1 - OTHER CHRONIC PANCREATITIS SNOMED Code(s): 056011647 (3) Pneumobilia Narrative/Plan: MRCP reports pneumobilia is seen better on CT and was present in 2018. No new biliary dilation. Sequela of chronic pancreatitis redemonstrated. Current Visit: Yes Status: Acute Code(s): K83.8 - OTHER SPECIFIED DISEASES OF BILIARY TRACT SNOMED Code(s): 622993433 Plan: 1. Continue symptomatic and supportive care 2. MRCP reviewed, there is no evidence of any new biliary ductal dilation, pneumobilia is not new and was seen on CT in 2018, evidence of chronic pancreatitis 3. Diet as tolerated 4. Antiemetics as needed 5. Miralax daily, give dose now Thank you for allowing us to participate in the care of the patient, the GI service will sign off, gastroenterology will not be available at the hospital this weekend and through next week. If further evaluation by gastroenterology is required the patient will need transfer as per the primary team's discretion. Dr. Riya Bonilla I agree with the dictator's note, documented as a scribe by Josette Shen.
[2021-05-25 11:45] LABS: Glucose,Whole Blood 271 mg/dL (75-99)
[2021-05-25] MEDS ORDERED: LORazepam 2 MG/ML INJ IV STA (12:28)
--- NOTE | 2021-05-25 13:42 | P.PN ---
Subjective Patient is doing fairly well today. She appeared comfortable when I saw her. She reported that her pain is unchanged compared to yesterday. Objective - Vital Signs Vital signs: Vital Signs Temp 97.4 F L 05/25/21 07:35 Pulse 64 05/25/21 07:35 Resp 16 05/25/21 07:35 BP 151/90 05/25/21 07:35 Pulse Ox 100 05/25/21 07:35 Intake & Output 05/24/21 05/25/21 05/25/21 18:59 06:59 18:59 Intake Total 600 Balance 600 Weight 62 kg Intake: Oral 600 Other: Voiding Method Toilet # Voids 4 1 - Exam General: The patient is awake and alert, in no distress Eye: there is normal conjunctiva bilaterally. Neck: The neck is supple, there is no JVD. Cardiovascular: Normal S1-S2, no S3-S4, no murmurs. Respiratory: Lungs clear to auscultation bilaterally Gastrointestinal: Abdomen is soft, nontender Musculoskeletal: There is no pedal edema. Neurological:. Speech is normal. Skin: Skin is warm and dry - Labs CBC & Chem 7: 05/24/21 05:11 05/24/21 05:11 Labs: Abnormal Lab Results - Last 24 Hours (Table) 05/24/21 05/24/21 05/24/21 Range/Units 16:31 17:19 20:36 POC Glucose (mg/dL) 156 H 139 H 259 H (75-99) mg/dL 05/25/21 05/25/21 Range/Units 06:54 11:43 POC Glucose (mg/dL) 241 H 271 H (75-99) mg/dL Assessment and Plan Assessment: 1. Pneumobilia with suspected cholangitis 2. Severe abdominal pain 3. Chronic pain syndrome maintained on high-dose morphine at home 4. Chronic pancreatitis 5. 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 Continue broad- spectrum antibiotic with IV Zosyn. Patient was seen and evaluated by GI. MRCP ordered for further evaluation. Pain control as needed. DVT prophylaxis with subcu Lovenox
--- NOTE | 2021-05-25 15:12 | MR ---
EXAMINATION TYPE: MR MRCP DATE OF EXAM: 05/25/2021 COMPARISON: Outside CT 2 days ago and older CT at this institution October 13, 2017 HISTORY: pneumobilia seen on CT, abnormal CT. Standard multiplanar, multisequence MRI departmental protocol Multiplanar, multisequence images of the abdomen were acquired without contrast. Thin and thick slice MRCP imaging performed on MRI scanner. FINDINGS: Liver/gallbladder/pancreas/biliary system: Generalized atrophy of the pancreas is redemonstrated seen better on CT. Diffuse granular pancreatic calcifications are seen better on CT. Gallbladder is surgi elham absent. Pneumobilia is better seen on CT studies versus MRI as MR is not good for air detection . Pneumobilia was noted on 2018 CT. There is no new intrahepatic or extrahepatic biliary dilatation a nd no significant change in bile duct diameter since 2018 CT. Pancreatic duct not well seen portion i n the proximal to mid body is focally dilated correlating with prior CTs favored product of chronic p ancreatitis. Liver is stable and somewhat small in size without obvious new mass. Right-sided colonic interposition redemonstrated similar to recent CT. Other: Dependent atelectasis in the lung bases more prominent from recent CT. Spleen and both adrenal glands remain within normal limits. No new renal mass or hydronephrosis. No suspicious bowel dilatat ion. No intra-abdominal ascites. No AAA. Osseous structures are intact. IMPRESSION: Pneumobilia is seen better on CT was present in 2018. No new biliary dilatation. Sequela of chronic pancreatitis redemonstrated.
[2021-05-25 16:33] LABS: Glucose,Whole Blood 212 mg/dL (75-99)
[2021-05-25] MEDS: polyethylene glycoL 3350 17 GM POWD.PACK PO SCH (16:52)
[2021-05-25 20:50] LABS: Glucose,Whole Blood 244 mg/dL (75-99)
[2021-05-25] MEDS: INSULIN DETEMIR (LEVEMIR) 100 UNIT/ML SYR SQ SCH (20:58)
[2021-05-26] MEDS: HYDROmorphone 0.5 MG/0.5 ML SYRINGE IVP PRN ×3 (00:36→07:30)
[2021-05-26] MEDS: PIPERACILLIN-TAZOBACTAM 3.375 GM in SODIUM CHLORIDE 0.9% 100 ML IVPB SCH ×2 (00:39→08:22)
[2021-05-26 07:45] LABS: Glucose,Whole Blood 303 mg/dL (75-99)
[2021-05-26] MEDS: INSULIN ASPART (NovoLOG) 100 UNIT/ML VIAL SQ SCH ×2 (08:20→12:16)
[2021-05-26] MEDS: hydrOXYzine pamoate 25 MG CAP PO SCH ×2 (08:21→13:13)
[2021-05-26] MEDS: polyethylene glycoL 3350 17 GM POWD.PACK PO SCH (08:21)
[2021-05-26] MEDS: PANTOPRAZOLE 40 MG TABLET PO SCH (08:21)
[2021-05-26] MEDS: GABAPENTIN 400 MG CAP PO SCH (08:21)
[2021-05-26] MEDS: ENOXAPARIN 40 MG/0.4 ML SYRINGE SQ SCH ×2 (08:22→08:24)
[2021-05-26 08:53] LABS: Glucose,Whole Blood 396 mg/dL (75-99)
[2021-05-26 09:15] VITALS: BP 141/92; PULSE 68; TEMP 98.5
[2021-05-26] MEDS ORDERED: MORPHINE SULFATE IR 15 MG TABLET PO PRN (11:06)
[2021-05-26 11:48] LABS: Glucose,Whole Blood 139 mg/dL (75-99)
--- NOTE | 2021-05-26 13:26 | P.DS ---
Providers Date of admission: 05/23/21 13:37 Expected date of discharge: 05/26/21 Attending physician: Silvana Smith MD Consults: 05/23/21 13:38 Consult Physician Routine Consulting Provider: Rosibel Bonilla Consult Reason/Comments: Abdominal pain, pneumobilia Do you want consulting provider notified?: Yes Primary care physician: Yung Fam [facility] [place] [facility] Course: This is a 56-year-old female with complex past medical history significant for chronic pancreatitis and history of remote alcohol abuse now sober that presented to an outside emergency room with worsening abdominal pain. Patient was evaluated and computed tomography scan of the abdomen showed evidence of pneumobilia. Patient was transferred to our hospital for GI evaluation. Her overall condition remained stable throughout her hospital stay. Liver enzymes were normal. Patient was seen and evaluated by GI. ERCP showed no evidence of bile duct dilation. Pneumobilia was noted on her previous computed tomography scan in 2018 was thought to be stable. Patient was cleared for discharge home. She has chronic pain syndrome and is maintained on morphine orally at home. I will prescribe her Creon to be taken 3 times a day with meals to hopefully improve her symptoms. She'll be discharged home in a stable condition. She will follow-up with her doctor as directed. Patient Condition at Discharge: Fair Plan - Discharge Summary Discharge Rx Participant: No New Discharge Prescriptions: New Morphine Sulfate Ir [MSIR] 15 mg PO Q4HR PRN tablet PRN Reason: Pain Lipase/Protease/Amylase [Creon Dr 24,000 Units Capsule] 1 cap PO AC-TID #90 cap Continue Morphine Sulfate 15 mg PO Q4H PRN PRN Reason: Pain Gabapentin 800 mg PO TID Promethazine [Phenergan] 25 mg PO Q6HR PRN PRN Reason: Nausea hydrOXYzine pamoate [hydrOXYzine PAMOATE] 25 mg PO QID No Action INSULIN LISPRO (humaLOG) [humaLOG] See Protocol SQ AC-TID Insulin Glargine [Lantus Vial] 15 unit SQ HS Discharge Medication List Gabapentin 800 mg PO TID 10/08/17 [History] Morphine Sulfate 15 mg PO Q4H PRN 10/08/17 [History] INSULIN LISPRO (humaLOG) [humaLOG] See Protocol SQ AC-TID 06/05/18 [History] Insulin Glargine [Lantus Vial] 15 unit SQ HS 05/23/21 [History] Promethazine [Phenergan] 25 mg PO Q6HR PRN 05/23/21 [History] hydrOXYzine pamoate [hydrOXYzine PAMOATE] 25 mg PO QID 05/23/21 [History] Lipase/Protease/Amylase [Radha Ziegler 24,000 Units Capsule] 1 cap PO AC-TID #90 cap 05/26/21 [Rx] Morphine Sulfate Ir [MSIR] 15 mg PO Q4HR PRN tablet 05/26/21 [Rx] Follow up Appointment(s)/Referral(s): None,Stated [REFERRING] - 1-2 days Patient Instructions/Handouts: Pancreatitis (DC) Discharge Disposition: HOME SELF-CARE
== END 2021-05-26 15:23 | disposition home or self-care (01) | DRG 445 ==
LOC: EC 13:04 → 4SSUR 13:37
PROVIDERS: ADMIT Internal Medicine; ATTEND Internal Medicine
DX: K83.8 Other specified diseases of biliary tract (principal); E87.2 Acidosis; K86.0 Alcohol-induced chronic pancreatitis; K83.09 Other cholangitis; R10.9 Unspecified abdominal pain; E11.9 Type 2 diabetes mellitus without complications; E83.42 Hypomagnesemia; E86.0 Dehydration; E87.6 Hypokalemia; F17.200 Nicotine dependence, unspecified, uncomplicated; F32.9 Major depressive disorder, single episode, unspecified; F41.9 Anxiety disorder, unspecified; G89.4 Chronic pain syndrome; K29.70 Gastritis, unspecified, without bleeding; Z20.822 Contact with and (suspected) exposure to COVID-19; K44.9 Diaphragmatic hernia without obstruction or gangrene; K59.00 Constipation, unspecified; Z79.4 Long term (current) use of insulin; Z79.899 Other long term (current) drug therapy; Z82.49 Family history of ischemic heart disease and other diseases of the circulatory system; Z86.711 Personal history of pulmonary embolism; Z91.040 Latex allergy status; F11.90 Opioid use, unspecified, uncomplicated
CPT/HCPCS: 36415; 74181; 80053; 83605; 83690; 83735; 85025; 87635; 99285